=== PATIENT | male | born 1950 | race Caucasian/White ===

== ENCOUNTER 2019-10-03 09:30 | Inpatient (IN) | payer MEDICARE, BC, OTHER ==
[~2019-10-03] VITALS: Ht 188 cm; Wt 121.6 kg
[2019-11-03] MEDS ORDERED: LEVO175T2 PO (12:52)
[2019-11-03] MEDS ORDERED: FLOM0.4C39 PO (12:52)
[2019-11-03] MEDS ORDERED: NORC1TAB8 PO (12:52)
[2019-11-03] MEDS ORDERED: ESCI10TA2 PO (12:52)
[2019-11-03] MEDS ORDERED: HM P99TA PO (12:52)
[2019-11-03] MEDS ORDERED: LOSA25TA14 PO (12:52)
[2019-11-03] MEDS ORDERED: METO1TAB7 PO (12:52)
[2019-11-03] MEDS ORDERED: MULTCAP PO (12:52)
[2019-11-03] MEDS ORDERED: [UNRECOGNIZED DRUG - OTHER] PO (12:52)
--- NOTE | 2019-11-08 08:16 | HPE ---
DATE OF ADMISSION: 11/09/2019 CHIEF COMPLAINT: Left hip pain. HISTORY OF PRESENT ILLNESS: Mr. Remy is a pleasant 69-year-old male with progressively worsening left hip pain and stiffness. He has failed to improve with conservative treatment. He has elected for surgery for his continued symptoms. He has pain with weightbearing activities and his activities of daily living. X-rays of the hip are notable for advanced osteoarthritis of the left hip joint. He has consented for a left total hip arthroplasty by Dr. Surinder Barrios. Medical optimization was performed by Dr. Lyles. ALLERGIES: SULFA. CURRENT MEDICATIONS: - Avalide - metoprolol - Synthroid - multivitamin PAST MEDICAL HISTORY: 1. Hypothyroidism. 2. Hypertension. PAST SURGICAL HISTORY: 1. Kidney stones. 2. Plantar fasciitis on the right and hammertoe. 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 Rarely drinks alcohol. FAMILY HISTORY: Noncontributory. REVIEW OF SYSTEMS: This patient denies chest pain, heart palpitations, cough, wheezing, difficulty breathing, and shortness of breath. He denies abdominal pain, nausea, vomiting, diarrhea, or constipation. He denies recent upper respiratory infection or urinary tract infection symptoms. He does complain of persistent pain in the left hip. PHYSICAL EXAMINATION: General: He is well-nourished, well-developed, in no acute distress, alert male patient. He ambulates with a mild limp favoring the left lower extremity. He does use a single-leg cane. Vital Signs: He is 72-1/2 inches tall, weighs 260 pounds, with a temperature of 97.0, pulse 72, blood pressure 134/88, and respirations of 17. Neck was supple without adenopathy or jugular venous distention. Lungs were clear to auscultation without rales or wheeze. Heart: Regular rate and rhythm. Abdomen: Bowel sounds were present. Extremities: Examination of the left upper extremity did show a well-healing benign noninfectious looking surgical incision over the antecubital region of the proximal forearm. Sutures are ready for removal and he is having those removed tonight by his surgeon. Otherwise, skin was intact over the hip. The patient had decreased internal and external range of motion due to pain and stiffness. The limb is neurovascularly intact. LABORATORY DATA: EKG showed sinus rhythm at 71 beats per minute. CBC showed a white count of 8.27, hemoglobin 14.1, hematocrit 43.5, BUN 14, creatinine 0.835, sodium 143, potassium 4.0. IMPRESSION: 1. Status post left forearm Mohs procedure for melanoma excision. 2. Advanced left hip arthritis. PLAN: The patient will have his sutures removed tonight. It should be no problem for his surgery on Thursday. With regards to the hip, he is using his ointment and his Hibiclens scrub. He has been consented for a left total hip arthroplasty by Dr. Surinder Barrios.
[2019-11-09] MEDS ORDERED: LIDOCAINE 1% MDV 20ML VIAL SQ PRN (06:00)
[2019-11-09] MEDS ORDERED: ceFAZolin SOD 2 GM in IV 1 EA IV ONE (07:45)
[2019-11-09] MEDS ORDERED: ACETAMINOPHEN 500 MG TAB PO ONE (07:45)
[2019-11-09] MEDS ORDERED: LR 1,000 ML IV ONE (07:45)
[2019-11-09] MEDS ORDERED: ceFAZolin 1GM VIAL (J0690 PER 500MG) As Ordered ONE (09:37)
[2019-11-09] MEDS ORDERED: EPINEPHrine INJ 1 MG/ML 1ML AMP As Ordered ONE (09:37)
[2019-11-09] MEDS ORDERED: fentaNYL 100 MCG/2 ML INJECTION (J3010) As Ordered ONE ×2 (10:18→12:33)
[2019-11-09] MEDS ORDERED: propofoL 500 MG/50 ML VIAL As Ordered ONE (10:18)
[2019-11-09] MEDS ORDERED: MIDAZOLAM INJ 2MG/2ML VIAL (J2250 PER 1MG) As Ordered ONE (10:18)
[2019-11-09] MEDS ORDERED: ePHEDrine SULFATE 25 MG/5 ML(5MG/ML) SYRINGE As Ordered ONE (10:19)
[2019-11-09] MEDS ORDERED: PHENYLephrine HCL 500 MCG/5 ML (100MCG/ML) SYRINGE (J2370) As Ordered ONE (10:38)
[2019-11-09] MEDS ORDERED: PHENYLEPHRINE 10MG/ML 1ML VIAL (J2370 PER 1) As Ordered ONE (10:58)
[2019-11-09] MEDS ORDERED: propofoL 200 MG/20 ML VIAL As Ordered ONE ×3 (11:02→11:50)
[2019-11-09] MEDS: fentaNYL 100 MCG/2 ML INJECTION (J3010) IV PRN ×4 (12:34→13:00)
[2019-11-09] MEDS ORDERED: ACETAMINOPHEN TAB 650MG DOSE (2X325MG) PO PRN (12:45)
[2019-11-09] MEDS ORDERED: oxyCODONE 5MG TAB PO PRN (12:45)
[2019-11-09] MEDS ORDERED: PERCOCET 5MG/325MG TAB PO PRN (12:45)
[2019-11-09] MEDS ORDERED: ONDANSETRON 4MG/2ML VIAL IV PRN ×2 (12:45)
[2019-11-09] MEDS ORDERED: MORPHINE 4 MG/ML 1ML VIAL/SYRINGE (J2270) IV PRN (12:45)
[2019-11-09] MEDS ORDERED: LR 1,000 ML IV SCH ×2 (12:45)
[2019-11-09] MEDS: HYDROMORPHONE HCL 0.5 MG/ 0.5 ML SYRINGE (J1170 PER 1) IV PRN ×4 (13:11→13:38)
--- NOTE | 2019-11-09 13:30 | REP ---
REASON: Status post THR. The femoral and acetabular components of the total hip prosthetic device appear well seated and well approximated. There is expected postoperative soft tissue swelling. There is a lateral skin staple line in place. Electronically Signed by Kevin Licona DO 11/09/2019 02:02 P
--- NOTE | 2019-11-09 14:43 | HPEPDOC ---
General Date of Admission Nov 09, 2019 at 06:51 Date of Service: Nov 09, 2019 Chief Complaint The patient is a 69-year-old male admitted with a reason for visit of Left Hip Osteoarthritis. History of Present Illness Consultation Report: Consultation requested by Dr Surinder Barrios. Consultation for management of medical comorbidities. HPI: This is a 69-year-old male with PMH of Hypertension, hypothyroid who was admitted for elective total hip replacement for progressively worsening left hippain and stiffness which has failed to improve with conservative treatment. X-rays of the hip are notable for advanced osteoarthritis of the left hip joint. He underwent went left total hip arthroplasty by Dr. Surinder Barrios. Hospitalist consulted for management of medical comorbidities. Now he compalins of dull aching pain at the left hip surgical site about 6, no radiation. Denies any nausea or vomiting, no SOb or cough. Home Medications Scheduled Escitalopram Oxalate (Escitalopram Oxalate) 10 Mg Tablet, 10 MG PO QPM, (Reported) Garlic (Odorless Garlic) 300 Mg Capsule, Unknown Dose PO DAILY, (Reported) Levothyroxine Sodium (Levothyroxine Sodium) 175 Mcg Tablet, 175 MCG PO DAILY, (Reported) Losartan Potassium (Losartan Potassium) 25 Mg Tablet, 12.5 MG PO DAILY, (Reported) Metoprolol Succinate (Metoprolol Succinate) 50 Mg Tab.er.24h, 50 MG PO QHS, (Reported) Multivitamin (Multivitamins) 1 Each Capsule, 1 CAP PO DAILY, (Reported) Potassium Gluconate (Potassium) 99 Mg Tablet, Unknown Dose PO DAILY, (Reported) Tamsulosin HCl (Flomax) 0.4 Mg Capsule, 0.4 MG PO QPM, (Reported) Scheduled PRN Hydrocodone/Acetaminophen ([place] 7.5-325 Tablet) 1 Each Tablet, 1 TAB PO Q6HP PRN for PAIN, (Reported) Allergies Coded Allergies: Sulfa (Sulfonamide Antibiotics) (Verified Allergy, Intermediate, rash, 11/03/19) Past Medical History Medical History 1. Hypothyroidism. 2. Hypertension. 3. BPH 4. Depression Surgical History 1. Kidney stones. 2. Plantar fasciitis on the right and hammertoe. Family History Significant Family History: Cancer (breast cancer), Other (stroke mother ) discussed with patient Social History * Smoker: Denies Alcohol: rarely Drugs: denies A-FIB/CHADSVASC A-FIB History Current/History of A-Fib/PAF?: No Review of Systems Constitutional: Denies: Chills, Fever, Night Sweats Eyes: Denies: Pain, Vision change ENT: Denies: Head Aches, Ear Pain, Dysphagia Skin: Denies: Rash, Lesions, Breakdown Pulmonary: Denies: Dyspnea, Cough Cardiovascular: Denies: Chest Pain, Palpitations, Orthopnea, Paroxysmal Noc. Dyspnea, Lt Headedness Gastrointestinal: Denies: Nausea, Vomiting, Abdominal Pain, Diarrhea Genitourinary: Denies: Dysuria, Frequency, Incontinence, Retention Hematologic: Denies: Bruising, Bleeding Excessively Musculoskeletal: Reports: Joint Pain Neurological: Denies: Weakness, Numbness, Change in speech, Confusion Physical Examination General Exam: Positive: Alert, Cooperative, No Acute Distress Eye Exam: Positive: PERRLA, Conjunctiva & lids normal, EOMI; Negative: Sclera icteric ENT Exam: Positive: Atraumatic, Mucous membr. moist/pink, Pharynx Normal Neck Exam: Positive: Supple; Negative: JVD, thyromegaly Chest Exam: Positive: Clear to auscultation, Normal air movement Heart Exam: Positive: Rate Normal, Regular Rhythm, Normal S1, Normal S2; Negative: Murmurs, Rubs Abdomen Exam: Positive: Normal bowel sounds, Soft; Negative: Tenderness, Hepatospenomegaly Extremity Exam: Negative: Clubbing, Cyanosis, Edema Skin Exam: Positive: Nl turgor and temperature; Negative: Breakdown, Lesion Neuro Exam: Positive: Normal Speech, Strength at 5/5 X4 ext, Normal Tone Vital Signs Vital Signs Date Time Temp Pulse Resp B/P (MAP) Pulse Ox O2 Delivery O2 Flow Rate FiO2 11/09/19 13:00 62 16 147/68 (94) 96 Room Air 11/09/19 12:50 2 11/09/19 12:31 97.7 Assessment/Plan This is a 69-year-old male with PMH of Hypertension, hypothyroid who was admitted for elective total hip replacement for progressively worsening left hip pain and stiffness which has failed to improve with conservative treatment. X- rays of the hip are notable for advanced osteoarthritis of the left hip joint. He underwent went left total hip arthroplasty by Dr. Surinder Barrios. Hospitalist consulted for management of medical comorbidities. Left Total hip replacement pain control and dvt prophylaxis as per ortho PT/Ot, bowel regimen. Hypertension continue home meds Hypothyroid synthroid BPH flomax. Plan / VTE VTE Prophylaxis Ordered?: Yes NATALYA MUHAMMAD MD Nov 09, 2019 13:14
[2019-11-09 15:00] VITALS: BP 142/77
[2019-11-09] MEDS: PERCOCET 5MG/325MG TAB PO PRN ×2 (15:00→21:33)
[2019-11-09 15:30] VITALS: BP 140/81
[2019-11-09] MEDS ORDERED: PILL CUTTER 1 EACH XX PRN (15:30)
[2019-11-09 16:30] VITALS: BP 142/76
[2019-11-09 17:30] VITALS: BP 136/73
[2019-11-09] MEDS ORDERED: KETOROLAC 30 MG/ML 1ML VIAL IV ONE (18:15)
[2019-11-09] MEDS: ceFAZolin SOD 2 GM in IV 1 EA IV SCH (18:27)
[2019-11-09 18:30] VITALS: BP 135/73
[2019-11-09 20:10] VITALS: BP 135/72
[2019-11-09] MEDS: ASPIRIN 81 MG ENTERIC TAB PO SCH (21:31)
[2019-11-09] MEDS: ESCITALOPRAM OXALATE 10 MG TAB (LEXAPRO) PO SCH (21:31)
[2019-11-09] MEDS: TAMSULOSIN 0.4 MG CAP PO SCH (21:31)
[2019-11-09] MEDS: METOPROLOL SUCC (TopROL XL) 50MG **XL** TAB PO SCH (21:32)
[2019-11-10 02:15] VITALS: BP 132/71
[2019-11-10] MEDS: ceFAZolin SOD 2 GM in IV 1 EA IV SCH ×2 (02:54→09:15)
[2019-11-10 05:47] VITALS: BP 130/72
[2019-11-10] MEDS: PERCOCET 5MG/325MG TAB PO PRN ×5 (05:49→23:18)
[2019-11-10] MEDS: LEVOTHYROXINE 75MCG TABLET (0.075MG) PO SCH (05:49)
[2019-11-10] MEDS: LEVOTHYROXINE 100MCG TABLET (0.1MG) PO SCH (05:49)
[2019-11-10] MEDS ORDERED: PERCOCET 5MG/325MG TAB PO PRN (06:30)
[2019-11-10 07:01] LABS: BASO # 0.1 10^3/uL (0.0-0.2); BASO % 0.5 % (0.0-1.0); EOS # 0.2 10^3/uL (0.0-0.5); EOS % 1.8 % (0.0-3.0); HEMATOCRIT 33.8 % (42.0-52.0); HEMOGLOBIN 11.1 g/dl (13.5-17.5); LYMPH # 1.7 10^3/uL (1.5-5.0); LYMPH % 18.4 % (24.0-44.0); MEAN CORPUSCULAR HEMOGLOBIN 31.1 pg (27.0-33.0); MEAN CORPUSCULAR HGB CONC 32.8 g/dl (32.0-36.5); MEAN CORPUSCULAR VOLUME 94.7 fl (80.0-96.0); MONO # 0.8 10^3/uL (0.0-0.8); MONO % 8.8 % (0.0-5.0); NEUTROPHILS # 6.5 10^3/uL (1.5-8.5); PLATELET COUNT, AUTOMATED 231 10^3/uL (150-450); RED BLOOD COUNT 3.57 10^6/uL (4.30-6.10); WHITE BLOOD COUNT 9.2 10^3/uL (4.0-10.0)
[2019-11-10] MEDS ORDERED: ASPI81TA85 PO (07:15)
[2019-11-10] MEDS ORDERED: PERC5TAB12 PO (07:15)
[2019-11-10 07:28] LABS: ALBUMIN 2.7 GM/DL (3.2-5.2); ALT/SGPT 22 U/L (12-78); BILIRUBIN,TOTAL 0.6 MG/DL (0.2-1.0); BLOOD UREA NITROGEN 17 MG/DL (7-18); CALCIUM LEVEL 8.9 MG/DL (8.8-10.2); CARBON DIOXIDE LEVEL 31 MEQ/L (21-32); CHLORIDE LEVEL 104 MEQ/L (98-107); CREATININE FOR GFR 0.87 MG/DL (0.70-1.30); GLOMERULAR FILTRATION RATE > 60.0 (>49); GLUCOSE, FASTING 110 MG/DL (70-100); POTASSIUM SERUM 3.9 MEQ/L (3.5-5.1); SODIUM LEVEL 141 MEQ/L (136-145); TOTAL PROTEIN 5.6 GM/DL (6.4-8.2)
[2019-11-10] MEDS: ASPIRIN 81 MG ENTERIC TAB PO SCH ×2 (09:11→20:35)
[2019-11-10] MEDS: MOM 30ML SUSPENSION UDC PO SCH (09:11)
[2019-11-10] MEDS: LOSARTAN 25 MG TAB PO SCH (09:11)
[2019-11-10] MEDS: MIRALAX *UNIT DOSE* 17GM PACKET PO SCH (09:14)
[2019-11-10 14:00] VITALS: BP 132/69
[2019-11-10] MEDS: ESCITALOPRAM OXALATE 10 MG TAB (LEXAPRO) PO SCH (20:35)
[2019-11-10] MEDS: METOPROLOL SUCC (TopROL XL) 50MG **XL** TAB PO SCH (20:35)
[2019-11-10] MEDS: TAMSULOSIN 0.4 MG CAP PO SCH (20:35)
[2019-11-10 22:00] VITALS: BP 130/70
[2019-11-11] MEDS: LEVOTHYROXINE 75MCG TABLET (0.075MG) PO SCH (05:11)
[2019-11-11] MEDS: LEVOTHYROXINE 100MCG TABLET (0.1MG) PO SCH (05:11)
[2019-11-11] MEDS: PERCOCET 5MG/325MG TAB PO PRN ×2 (05:11→10:28)
[2019-11-11 06:00] VITALS: BP 129/64
[2019-11-11 07:04] LABS: HEMATOCRIT 32.6 % (42.0-52.0); HEMOGLOBIN 10.7 g/dl (13.5-17.5); MEAN CORPUSCULAR HEMOGLOBIN 31.2 pg (27.0-33.0); MEAN CORPUSCULAR HGB CONC 32.8 g/dl (32.0-36.5); PLATELET COUNT, AUTOMATED 220 10^3/uL (150-450); RED BLOOD COUNT 3.43 10^6/uL (4.30-6.10); WHITE BLOOD COUNT 11.3 10^3/uL (4.0-10.0)
[2019-11-11 07:35] LABS: ALBUMIN 2.8 GM/DL (3.2-5.2); ALT/SGPT 18 U/L (12-78); BILIRUBIN,TOTAL 0.6 MG/DL (0.2-1.0); BLOOD UREA NITROGEN 15 MG/DL (7-18); CALCIUM LEVEL 8.7 MG/DL (8.8-10.2); CARBON DIOXIDE LEVEL 29 MEQ/L (21-32); CHLORIDE LEVEL 106 MEQ/L (98-107); GLOMERULAR FILTRATION RATE > 60.0 (>49); GLUCOSE, FASTING 97 MG/DL (70-100); POTASSIUM SERUM 3.8 MEQ/L (3.5-5.1); SODIUM LEVEL 141 MEQ/L (136-145); TOTAL PROTEIN 5.8 GM/DL (6.4-8.2)
[2019-11-11 08:38] VITALS: BP 129/64
[2019-11-11] MEDS: ASPIRIN 81 MG ENTERIC TAB PO SCH (08:38)
[2019-11-11] MEDS: MOM 30ML SUSPENSION UDC PO SCH (08:38)
[2019-11-11] MEDS: LOSARTAN 25 MG TAB PO SCH (08:38)
[2019-11-11] MEDS: MIRALAX *UNIT DOSE* 17GM PACKET PO SCH (08:39)
--- NOTE | 2019-11-15 06:29 | RO ---
DATE OF PROCEDURE: 11/09/2019 PREPROCEDURE DIAGNOSIS: Degenerative arthritis of the left hip. POSTPROCEDURE DIAGNOSIS: Degenerative arthritis of the left hip. PROCEDURE: Left total hip arthroplasty using a Size 8 standard offset Adena stem with an 8.5 mm neck and a 56 mm Gription Sector cup with a 40 mm polyethylene liner. SURGEON: Dr. Connie Barrios PREVENTIVE MEDICINE SPECIALIST: Carlita Ortiz ANESTHESIA: Spinal. COMPLICATIONS: None. ESTIMATED BLOOD LOSS: 300 mL. SPECIMEN: Femoral head. PROCEDURE: Antibiotics were given intravenously preoperatively and a successful spinal anesthetic was induced. He was placed in the lateral decubitus position with the left hip uppermost. Yoan hip positioner was utilized. The down leg well padded, especially the peroneal nerve. The axillary roll was utilized. The left hip area was carefully prepped and draped in the usual sterile fashion. Then, after an appropriate time out, a longitudinal incision was made for a direct lateral approach to the hip. Bovie cautery was used to coagulate crossing vessels down to the tensor fascia. It is noteworthy this was a difficult surgery. He had a very large leg and a very deep soft tissue envelope. My medical assistant cardiology, Ms. Carlita Ortiz, was critical to the success of this difficult procedure by helping with appropriate soft tissue retraction, helping to manipulate the leg, helping to dislocate and relocate the hip several times, helping to close the wound, and helping to prepare the patient, amongst many other tasks to allow me to perform the operation smoothly, efficiently and safely. We divided the tensor fascia in line with the skin incision. We did have to extend the incision distally and proximally for adequate exposure because of the deep soft tissue envelope. The gluteus medius was split in the anterior 1/3 posterior 2/3 junction. Then underlying this we divided the gluteus minimus and then the anterior hip capsule and then carefully dissected off the proximal femur as we externally rotated the hip and eventually we were able to dislocate the hip anteriorly. The piriformis fossa was identified, followed by the insertion of the starter reamer and then the canal finder reamer and then the lateralizing reamer. Then, we reamed up eventually to size 8. A femoral neck osteotomy was performed. Then, we began broached up to a size 8. We were about a finger breadths above the lesser trochanter. Great care was taken to make sure we were lateral enough and not to put the stem in varus. We eventually were able to get good alignment and good fixation of the stem. The trial was removed and we exposed the acetabulum and performed a labral excision 360 degrees. We then began reaming beginning with a 48 mm reamer and then advanced in 2s up to 52 and 1 from there up to 55. The trial 56 cup was placed using the extramedullary alignment jig to estimate our version and abduction and it seemed to fit snugly, but I did ask for the Sector cup in case screws would be needed. He ad a very sizable anterior osteophyte, but we clearly reamed down to the cotyloid fossa. We pulsatile irrigated out the joint as we did several times throughout the operation. Then, asked for the real 57 cup and that was placed, again, using the extramedullary alignment jig to estimate our version and abduction. It was well seated. It did not need supplemental screw fixation. The central hole eliminator was placed and then the polyethylene was placed. We then began a series of trials beginning with a +1.5 standard offset stem and then we trialed up to an 8.5 and he did have an excessively long neck I felt and the 8.5 seemed to give him the best soft tissue tension. He was stable to flexion and internal rotation and extension and external rotation. Thus, I settled on the 8.5 neck length. We then removed all the trial components, copiously pulsatile lavage irrigated out the femoral canal, as I did again several times throughout the surgery. Then advanced the real #8 Adena stem and then dried the trunnion and placed the 40 mm head with an 8.5 neck length and made sure it was secure. Then, reduced the hip. We copiously irrigated again and closed the anterior hip capsule and the gluteus minimus back anatomically with interrupted #1 PDS sutures. The gluteus medius was repaired back anatomically with interrupted #1 PDS suture, irrigating between layers. We closed the deep tensor fascia back with a combination of #1 PDS suture and a running #1 Stratafix. Then we irrigated the deep soft tissues and then closed with interrupted #2-0 PDS suture. The skin was closed with etienne, covered by an Optifoam, dry sterile bulky dressing. He was then turned supine and then transferred to the stretcher and then to the recovery room in stable condition. There were no intraoperative complications.
== END 2019-11-11 15:45 | disposition home or self-care (01) | DRG 470 ==
LOC: M OR 11-09 06:51 → M MS5PR 11-09 14:40
PROVIDERS: ADMIT Orthopaedic Surgery; ATTEND Orthopaedic Surgery
PROC: 0SRB0JA Replacement of Left Hip Joint with Synthetic Substitute, Uncemented, Open Approach (ICD-10-PCS; principal; 2019-11-09 09:50)
DX: M16.12 Unilateral primary osteoarthritis, left hip (principal); E03.9 Hypothyroidism, unspecified; I10 Essential (primary) hypertension; Z87.442 Personal history of urinary calculi; Z85.820 Personal history of malignant melanoma of skin; Z88.2 Allergy status to sulfonamides; N40.0 Benign prostatic hyperplasia without lower urinary tract symptoms; F32.9 Major depressive disorder, single episode, unspecified

== ENCOUNTER → 2019-11-06 | Outpatient (CLI) | payer MEDICARE, BC, OTHER ==
[~2019-11-06] MED LIST: ASPI81TA85 PO; ESCI10TA2 PO; FLOM0.4C39 PO; HM P99TA PO; LEVO175T2 PO; LOSA25TA14 PO; METO1TAB7 PO; MULTCAP PO; NORC1TAB8 PO; PERC5TAB12 PO; [UNRECOGNIZED DRUG - OTHER] PO
== END ==
LOC: M LABSMTC 09:34
PROVIDERS: ATTEND Anesthesiology
DX: Z01.818 Encounter for other preprocedural examination (principal); Z11.59 Encounter for screening for other viral diseases

== ENCOUNTER 2020-08-03 06:12 | Day surgery (SDC) | payer MEDICARE, BC, OTHER ==
[~2020-08-03] VITALS: Ht 188 cm; Wt 111.5 kg
[~2020-08-03 06:12] MED LIST changes: -ASPI81TA85 PO; +ASPI81TA86 PO; +ESCI10TA16 PO; -ESCI10TA2 PO; +HYDR-3716 PO; +LEVO2TA PO; +LEXA1TAB PO; +LR 1,000 ML IV ONE; +SYNT25TA PO; +THERTAB52 PO; +VITA-243 PO; +ceFAZolin SOD 2 GM in IV 1 EA IV ONE
--- OUTSIDE RECORDS SUMMARY | 2020-08-03 06:19 | CCD ---
Author Author [facility] Organization [facility] Address Unknown Phone Unavailable Care Team Providers Care Owner/Operator Name Role Phone Ashley Tello Unavailable PROBLEMS Type Condition ICD9-CM Code [id number] Code Onset Dates Condition S tatus W/U Status Risk SNOMED Code Notes Problem Ureteral stone with hydronephrosis N13.2 Activ e confirmed 282380904 Problem Pre-op testing Z01.818 Active confirmed 4227 19216 ALLERGIES Allergen (clinical drug ingredient) Drug/Non Drug Allergy do cumented on EMR Reaction Allergy Type Onset Date Status duloxetine Cymbalta([facility] [place]NOTE 2] Code:[address]-48) Diarrhea Drug Allergy Active Sulfa (for allergy use only) Unknown Drug Allergy Active ENCOUNTERS from 1950 to 2020-07-24 Encounter Location Date Provider Diagnosis [facility] [address] [place] [address] Jul Ashley Tello IMMUNIZATIONS No Information SOCIAL HISTORY Tobacco Use: Social History Observation Description Date Details (start date - stop date) Never Smoker Sex Assigned At : Social History Observation Description Sex Assigned At Unknown Language: Question Answer Notes Languages spoken: Azerbaijani Yarsani: Question Answer Notes Yarsani No buddhist beliefs that would impact health care. Alcohol Screening: Question Answer Notes Did you have a drink containing alcohol in the past year? Ye s Points 1 Interpretation Negative How many drinks did you have on a typica l day when you were drinking in the past year? 1 or 2 (0 points) How often did you have a drink containing alcohol in t he past year? Monthly or less (1 point) Tobacco Use: Question Answer Notes Are you a: never smoker REASON FOR REFERRAL No Information VITAL SIGNS No information MEDICATIONS Medication SIG (Take, Route, Frequency, Duration) Notes Start Da te End Date Status Flomax 0.4 MG 1 capsule Orally Once a day for 30 day(s) Active Levothyroxine Sodium 25 MCG 1 tablet in the morning on an empty stomach Orally Once a day for 30 day(s) Active Finasteride 5 MG 1 tablet Orally Once a day for 30 day(s) Not-Taking Hydrocodone-Acetaminophen 7.5-325 MG 1 tablet as needed Orally ever y 6 hrs Active Levothyroxine Sodium 200 MCG 1 tablet in the morning o n an empty stomach Orally Once a day for 30 day(s) Active Metoprolol Succinate 50 MG 1 capsule Orally Once a day for 30 day(s) Active Losartan Potassium 100 MG 1 tablet Orally Once a day for 30 day(s) Active Escitalopram Oxalate 10 MG 1 tablet Orally Once a day for 30 day(s) Active Hydrochlorothiazide 12.5 MG 1 capsule in the morning O rally Once a day for 30 day(s) Active Triamcinolone Acetonide 0.1 % 1 application Externally Two times a We ek Active PROCEDURES No Information RESULTS No Results REASON FOR VISIT covid testing MEDICAL (GENERAL) HISTORY Type Description Date Medical History seborrhelc dermatitis Medical History obstructive sleep apnea Medical History nervousness Medical History mixed hyperlipidemia Medical History low back pain Medical History htn Medical History hypothyroidism Medical History kidney stones Medical History bph with lower urinary tract symptoms 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 Surgical History right foot plantar fascla 02/24/2006 Surgical History sinusectomy 2000 Surgical History prostate biopsy x 3 negative Surgical History right wrist arthroscopy 10/2014 Surgical History claw toe correction Surgical History left hip sx 11/2019 Surgical History melanonma removed from left arm 10/2019 Hospitalization History hip sx Goals Section No Information Health Concerns No Information MEDICAL EQUIPMENT No Information MENTAL STATUS No Information FUNCTIONAL STATUS No Information ASSESSMENTS No Information PLAN OF TREATMENT Next Appt Details Provider Name:Alexander Vásquez, 2020-08 09:30:00 AM, [address], [place], [address], Insurance Providers Payer Name Payer Address Payer Phone Insured Name Patient Relati onship to Insured Coverage Start Date Coverage End Date [facility] [address] [facility] [id number] [phone] ABRAHAM JORDAN self MEDICARE Part A and B [address] [facility] [phone] ABRAHAM JORDAN self
--- OUTSIDE RECORDS SUMMARY | 2020-08-03 06:20 | CCD ---
Author Author [facility] Organization [facility] Address Unknown Phone Unavailable Care Team Providers [employer] Architect Name Role Phone Ashley Tello Unavailable PROBLEMS Type Condition ICD9-CM Code [id number] Code Onset Dates Condition S tatus W/U Status Risk SNOMED Code Notes Problem Ureteral stone with hydronephrosis N13.2 Activ e confirmed 114440050 Problem Pre-op testing Z01.818 Active confirmed 4227 29335 ALLERGIES Allergen (clinical drug ingredient) Drug/Non Drug Allergy do cumented on EMR Reaction Allergy Type Onset Date Status duloxetine Cymbalta([facility] Code:[address]-21) Diarrhea Drug Allergy Active Sulfa (for allergy use only) Unknown Drug Allergy Active ENCOUNTERS from 1950 to 2020-07-11 Encounter Location Date Provider Diagnosis [facility] [address] [place] [address] Jul Ashley Recore Dysuria R30.0 IMMUNIZATIONS No Information SOCIAL HISTORY Tobacco Use: Social History Observation Description Date Details (start date - stop date) Never Smoker Sex Assigned At : Social History Observation Description Sex Assigned At Unknown Language: Question Answer Notes Languages spoken: Tristanian Muslim: Question Answer Notes Muslim No yazdanism beliefs that would impact health care. Alcohol [...] Information RESULTS No Results REASON FOR VISIT UTI? MEDICAL (GENERAL) HISTORY Type Description Date Medical [...] No Information FUNCTIONAL STATUS No Information ASSESSMENTS Encounter Date Diagnosis Assessment Notes Treatment Notes Treatm ent Clinical Notes Jul, Dysuria (ICD-10 - R30.0) PLAN OF TREATMENT Treatment Notes Test Name Order Date URINE CULTURE 2020-07-09 [facility] URINALYSIS 2020-07-09 Next Appt Details Provider Name:Alexander Vásquez, 2020-08 09:30:00 AM, [address], [place], [address], Insurance Providers Payer Name Payer Address Payer Phone Insured Name Patient Relati onship to Insured Coverage Start Date Coverage End Date [facility] [address] [facility] [id number] ABRAHAM JORDAN self MEDICARE Part A and B [address] [facility] [phone] [phone] ABRAHAM JORDAN self
--- OUTSIDE RECORDS SUMMARY | 2020-08-03 06:20 | CCD | Clinical Summary ---
Author Author RecoveredPersonRecord_000001 Francisco Javier MD Organization Unknown Address [address] [facility] [address] [place] [address] Phone Unavailable Care Team Providers Care Manager Lan Name Role Phone Rafal NEAL, Dr. Jyothi Sanchez MD Unavailable [phone] Eliza, Nurse Practitioner, Gladys Unavailable Unava ilable Social History Code Name Start Date Stop Date Never Smoker 10/13/2011 Sex: Male Problems SNOMED Problem Status Date Discovered Last Modifie d Date Calculus of kidney Active 06/21/2020 1 [id number] Encounter for screening for malignant neoplasm o f prostate Resolved 04/25/2020 04/25/2020 Other specified hypothyroidism Active 02/21/2011 04/25/2020 Essential (primary) hypertension Active 09/07/19 11 04/25/2020 Mixed hyperlipidemia Active 08/02/2007 020 Obstructive sleep apnea < CPAP INTOLERANT Active 02/03/2006 04/25/2020 Encounter for general adult medical exam ination without abnormal findings Resolved 04/25/2020 04/25/2020 Nervousness Active 03/25/2006 10/18/2019 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 Active 0 09/05/2019 10/18/2019 Benign prostatic hyperplasia with lower urinary tract symptoms Active 10/15/2017 10/18/2019 Low back pain Active 12/26/2008 07/20/2019 Body mass index (BMI) 33.0-33.9, adult Active 04/21/2019 Polyneuropathy, unspecified Active 04/20/2018 10/20/2018 BPH Active 10/15/2017 10/15/2017 48532946 Hearing loss Active 04/16/2017 04/16/2017 86966525 Unspecified hearing loss, left ear Active 201604/16/2017 00732656 Renal stone Active 09/06/2015 12/14/2017 33766608 Acquired hypothyroidism Active 02/21/201102/2018 Eczema Active 02/03/2006 85684389 Obstructive sleep apnea,CPAP intolerant Active 0 02/03/2006 04/16/2017 45301381 Obstructive sleep apnea (adult) (pediatric) Active 02/03/2006 04/16/2017 172076401 Nervousness Active 03/25/2006 12/14/2017 95630436 Hyperlipidemia Active 08/02/2007 10/15/2017 Acquired hypothyroidism, unspecified cause Active 09/18/2004 Obstructive sleep apnea Active 02/16/2003 Seborrhea Active 05/18/2003 12/14/2017 Seborrheic dermatitis, unspecified Active 200212/14/2017 Plantar fasciitis Active 01/12/2003 Essential hypertension Active 02/16/2003 Depression Active 01/12/2003 Chronic low back pain Active 09/22/2002 Medications Brand Strength Dose/Route/Frequency RxNorm Code Date Started Date Discontinued Status Triamcinolone Acetonide 0.1% Cream Apply thin film to affected ar ea bid 9973842 05/18/2003 Current finasteride 5 mg oral tablet TAKE ONE TABLET BY MOUTH EVERY DAY 31 0346 10/15/2017 Current escitalopram oxalate 10 mg oral tablet TAKE ONE TABLET BY MOUTH EVERY DAY 322438 12/14/2017 Current tamsulosin 0.4 mg oral capsule TAKE ONE CAPSULE BY MOUTH EVERY DA Y 396173 10/15/2017 Current levothyroxine 200 mcg oral tablet TAKE ONE TABLET BY MOUTH EVERY DA Y 530643 10/18/2019 Current hydroCHLOROthiazide 12.5 mg oral tablet TAKE ONE TABLET BY MOUTH EVERY DAY 871539 12/07/2019 Current losartan 100 mg oral tablet TAKE ONE TABLET BY MOUTH EVERY DAY 732111 12/07/2019 Current metoprolol succinate 50 mg oral Tablet, Extended Release 24 hr TAKE ONE TABLET BY MOUTH EVERY DAY 673033 02/16/2003 Current levothyroxine 25 mcg oral tablet TAKE ONE TABLET BY MOUTH EVERY DAY 563904 12/21/2019 Current HYDROcodone-acetaminophen 7.5-325 mg oral tablet take 1 tabl et by oral route every 4 hours as needed for pain MDD 4 910860 03/02/2019 Current Allergies Date Identified Type Cause Reaction Severity Status Code System Co de 12/07/2003 Allergy to substance Sulfas Low Active 12/14/2017 Allergy to substance Cymbalta diarrhea Low Active RXNORM 346313 Procedures Code System Code Description Date Ordered Status CPT 08362 Radiologic exam abdomen 1 view 06/21/2020 completed Immunizations Date Vaccine Status CVX 08/16/2019 Influenza, high dose seasonal Completed 13 5 10/23/2016 Td adult Completed 09 04/16/2017 Prevnar 13 (Pneumococcal PCV 13) Completed 133 04/20/2018 PNEUMOVAX 23 (Pneumococcal PPV23) Completed 33 Vital Signs Date PulseOx Height Weight BMI Temp Respiration Heart Rate Blood P ressure IO2C 06/21/2020 96% 187.96cm 114.31kg 32.36kg/m2 36.56Cel 84/min 130 /80mm[Hg] Assessment * N20.0 Calculus of kidney Plan of Treatment * Calculus of kidney* Orders: [id number] - Established patient outpatient visit, 20-29 minutes 42358 - Radiologic exam abdomen 1 view 80209 - Urinalysis, automated, with microscopy 85737 - Culture, bacterial; with isolation and presumptive identification of eac h isolate, urine Referrals No referral reasons listed. Functional Status No Functional Status Listed Mental Status No Mental Status Listed Goals No Goals listed. Health Concerns No Health Concerns listed. Health Status Evaluations/Outcomes No Evaluations/Outcomes listed. Interventions No Interventions listed. Lab Test & Results Date Performed Test Result Status 06/21/2020 KUB/FLATPLATE, ABDO: Radiology Report Exam Numbe r: [id number] completed 06/21/2020 KUB/FLATPLATE, ABDO: Radiology Report completed 06/21/2020 KUB/FLATPLATE, ABDO: Radiology Report AT E OF EXAMINATION: 06/21/2020 14:34 EST completed 06/21/2020 KUB/FLATPLATE, ABDO: Radiology Report completed 06/21/2020 KUB/FLATPLATE, ABDO: Radiology Report HISTORY: R enal stone completed 06/21/2020 KUB/FLATPLATE, ABDO: Radiology Report completed 06/21/2020 KUB/FLATPLATE, ABDO: Radiology Report TE CHNIQUE: 1 views of the abdomen were obtained. completed 06/21/2020 KUB/FLATPLATE, ABDO: Radiology Report completed 06/21/2020 KUB/FLATPLATE, ABDO: Radiology Report completed 06/21/2020 KUB/FLATPLATE, ABDO: Radiology Report Th ere is a 0.3 cm stone in the upper mid and lower pole of left completed 06/21/2020 KUB/FLATPLATE, ABDO: Radiology Report ki dney. Bowel gas pattern appears unremarkable. completed 06/21/2020 KUB/FLATPLATE, ABDO: Radiology Report completed 06/21/2020 KUB/FLATPLATE, ABDO: Radiology Report IMPRESSION : completed 06/21/2020 KUB/FLATPLATE, ABDO: Radiology Report completed 06/21/2020 KUB/FLATPLATE, ABDO: Radiology Report At least 3 small stones projecting over the left renal contour. completed 06/21/2020 KUB/FLATPLATE, ABDO: Radiology Report completed 06/21/2020 KUB/FLATPLATE, ABDO: Radiology Report El ectronically signed in PS360 by: Manjinder Shearer M.D. 06/21/2020 completed 06/21/2020 KUB/FLATPLATE, ABDO: Radiology Report 15:02 EST completed 06/21/2020 KUB/FLATPLATE, ABDO: Radiology Report completed 06/21/2020 KUB/FLATPLATE, ABDO: Radiology Report completed 06/21/2020 KUB/FLATPLATE, ABDO: Radiology Report Reported By: - Helen SHEARER M.D. completed 06/21/2020 KUB/FLATPLATE, ABDO: Radiology Report Signed By: Helen SHEARER M.D. completed 06/21/2020 KUB/FLATPLATE, ABDO: Radiology Report completed Test Code Code System Panel Description Date Ordered Note 31901 CPT Urinalysis, automated, with microscopy Signed off by Daniel Lyles on 06-21-2020 18068 CPT Culture, bacterial; with isolation and presumptive identification of each isolate, urine 06/21/2020 Signed off by Daniel reynolds on 06-21-2020 Encounter Diagnosis * Calculus of kidney Here today for evaluation of possible kidney stones. He has a long history of ki dney stones, last time was 2018, had them removed by Dr. Lui. Reports left s ided flank pain and hematuria 1-2 weeks ago. Now he is only having bladder press ure and discomfort with dysuria. Hematuria and flank pain have resolved.Denies f ever, chills, nausea, or vomiting. No CVA tenderness today.Unable to give a urin e sample in the office today. He is already on flomax and has chronic pain meds.
--- OUTSIDE RECORDS SUMMARY | 2020-08-03 06:20 | CCD ---
Author Author [facility] Organization [facility] Address Unknown Phone Unavailable Care Team Providers Care Phlebotomy Lab Assistant Name Role Phone Ashley Tello Unavailable PROBLEMS Type Condition ICD9-CM Code [id number] Code Onset Dates Condition S tatus W/U Status Risk SNOMED Code Notes Problem Ureteral stone with hydronephrosis N13.2 Activ e confirmed 607340904 Problem Pre-op testing Z01.818 Active confirmed 4227 14543 ALLERGIES Allergen (clinical drug ingredient) Drug/Non Drug Allergy do cumented on EMR Reaction Allergy Type Onset Date Status duloxetine Cymbalta([facility] Code:[address]-04) Diarrhea Drug Allergy Active Sulfa (for allergy use only) Unknown Drug Allergy Active ENCOUNTERS from 1950 to 2020-07-14 Encounter Location Date Provider Diagnosis [facility] [address] [place] [address] Jun Ashley Recore Ureteral stone with hydronephrosis N13.2 and Pre-op testing Z01.818 IMMUNIZATIONS No Information SOCIAL HISTORY Tobacco Use: Social History Observation Description Date Details (start date - stop date) Never Smoker Sex Assigned At : Social History Observation Description Sex Assigned At Unknown Language: Question Answer Notes Languages spoken: Armenian Anabaptism: Question Answer Notes Anabaptism No adventist beliefs that would impact health care. Alcohol [...] REASON FOR REFERRAL No Information VITAL SIGNS Weight 250 lbs Jun, Height 74 in Jun, BMI 32.09 kg/m2 Jun, Heart Rate 63 /min Jun, Respiratory Rate 18 /min Jun, Oximetry 95 Jun, Blood pressure systolic 128 mm Hg Jun, Blood pressure diastolic 74 mm Hg Jun, MEDICATIONS Medication SIG (Take, Route, Frequency, Duration) [...] Information RESULTS No Results REASON FOR VISIT obstructing stone on right side MEDICAL (GENERAL) HISTORY Type Description Date Medical [...] Notes Treatment Notes Treatm ent Clinical Notes 22 Franko, 2021 Ureteral stone with hydronephrosis (ICD-10 - N13 .2) Jun, Pre-op testing (ICD-10 - Z01.818) PLAN OF TREATMENT Treatment Notes Test Name Order Date CBC - Complete Blood Count 2020-06-29 PT & APTT 2020-06-29 URINE CULTURE 2020-06-29 UA URINALYSIS 2020-06-29 Basic Metabolic Profile (BMP) 2020-06-29 Electrocardiogram (EKG) 2020-06-29 Chest X-ray PA and lateral 2020-06-29 Next Appt Details Provider Name:Alexander Vásquez, 2020-08 09:30:00 AM, [address], [place], [address], Insurance Providers Payer Name Payer Address Payer Phone Insured Name Patient Relati onship to Insured Coverage Start Date Coverage End Date MEDICARE Part A and B [address] [facility] [id number] [phone] ABRAHAM JORDAN [facility] [address] [facility] [id number] [phone] ABRAHAM JORDAN self
--- OUTSIDE RECORDS SUMMARY | 2020-08-03 06:20 | CCD ---
Author Author [facility] Organization [facility] Address Unknown Phone Unavailable Care Team Providers Care Med Aide Name Role Phone Ashley Tello Unavailable PROBLEMS Type Condition ICD9-CM Code [id number] Code Onset Dates Condition S tatus W/U Status Risk SNOMED Code Notes Problem Ureteral stone with hydronephrosis N13.2 Activ e confirmed 610372679 Problem Pre-op testing Z01.818 Active confirmed 4223 29292 ALLERGIES Allergen (clinical drug ingredient) Drug/Non Drug Allergy do cumented on EMR Reaction Allergy Type Onset Date Status duloxetine Cymbalta([facility] Code:[address]-81) Diarrhea Drug Allergy Active Sulfa (for allergy use only) Unknown Drug Allergy Active ENCOUNTERS from 1950 to 2020-07-12 Encounter Location Date Provider Diagnosis [facility] [address] [place] [address] Jul Ashley Recore Pre-op testing Z01.818 and Ureteral ston e with hydronephrosis N13.2 IMMUNIZATIONS No Information SOCIAL HISTORY Tobacco Use: Social History Observation Description Date Details (start date - stop date) Never Smoker Sex Assigned At : Social History Observation Description Sex Assigned At Unknown Language: Question Answer Notes Languages spoken: Romanian Anglican: Question Answer Notes Anglican No voodoo beliefs that would impact health care. Alcohol [...] Information RESULTS No Results REASON FOR VISIT COVID test MEDICAL (GENERAL) HISTORY Type Description Date Medical [...] Treatment Notes Treatm ent Clinical Notes Jul, Pre-op testing (ICD-10 - Z01.818) Jul, Ureteral stone with hydronephrosis (ICD-10 - N13 .2) PLAN OF TREATMENT Treatment Notes Test Name Order Date Coronavirus 2019 Nasopharygeal (Send Out) COVID 2-02 Next Appt Details Provider Name:Alexander Vásquez, 2020-08 09:30:00 AM, [address], [place], [address], Insurance Providers Payer Name Payer Address Payer Phone Insured Name Patient Relati onship to Insured Coverage Start Date Coverage End Date MEDICARE Part A and B [address] [facility] [phone] ABRAHAM JORDAN [facility] [address] [facility] [id number] [phone] ABRAHAM JORDAN self
--- OUTSIDE RECORDS SUMMARY | 2020-08-03 06:21 | CCD ---
Author Author [facility] Organization [facility] Address Unknown Phone Unavailable Care Team Providers Care Java Developer Name Role Phone Jane VASQUEZ M.D. Unavailable Unavailable Jane VASQUEZ.Connie Unavailable Unavailable Jane VASQUEZ.Connie Unavailable Unavailable Jane VASQUEZ M.DMelida Unavailable Unavailable Jane VASQUEZ M.DMelida Unavailable Unavailable Jane VASQUEZ M.DMelida Unavailable Unavailable Jane VASQUEZ M.DMelida Unavailable Unavailable Jane VASQUEZ M.DMelida Unavailable Unavailable Jane VASQUEZ M.DMelida Unavailable Unavailable Jane VASQUEZ M.DMelida Unavailable Unavailable Jane VASQUEZ M.DMelida Unavailable Unavailable Jane VASQUEZ M.DMelida Unavailable Unavailable HURLBUT, CHERI PRODUCT SUPPORT ANALYST Unavailable Unavailable HURLBUT, CHERI PRODUCT SUPPORT ANALYST Unavailable Unavailable HURLBUT, CHERI PRODUCT SUPPORT ANALYST Unavailable Unavailable HURLBUT, CHERI PRODUCT SUPPORT ANALYST Unavailable Unavailable HURLBUT, CHERI PRODUCT SUPPORT ANALYST Unavailable Unavailable HURLBUT, CHERI PRODUCT SUPPORT ANALYST Unavailable Unavailable HURLBUT, CHERI PRODUCT SUPPORT ANALYST Unavailable Unavailable HURLBUT, CHERI PRODUCT SUPPORT ANALYST Unavailable Unavailable HURLBUT, CHERI PRODUCT SUPPORT ANALYST Unavailable Unavailable HURLBUT, CHERI PRODUCT SUPPORT ANALYST Unavailable Unavailable HURLBUT, CHERI PRODUCT SUPPORT ANALYST Unavailable Unavailable HURLBUT, CHERI PRODUCT SUPPORT ANALYST Unavailable Unavailable HURLBUT, CHERI PRODUCT SUPPORT ANALYST Unavailable Unavailable HURLBUT, CHERI PRODUCT SUPPORT ANALYST Unavailable Unavailable HURLBUT, CHERI PRODUCT SUPPORT ANALYST Unavailable Unavailable HURLBUT, CHERI PRODUCT SUPPORT ANALYST Unavailable Unavailable HURLBUT, CHERI PRODUCT SUPPORT ANALYST Unavailable Unavailable HURLBUT, CHERI PRODUCT SUPPORT ANALYST Unavailable Unavailable HURLBUT, CHERI PRODUCT SUPPORT ANALYST Unavailable Unavailable HURLBUT, CHERI PRODUCT SUPPORT ANALYST Unavailable Unavailable HURLBUT, CHERI PRODUCT SUPPORT ANALYST Unavailable Unavailable HURLBUT, CHERI PRODUCT SUPPORT ANALYST Unavailable Unavailable HURLBUT, CHERI PRODUCT SUPPORT ANALYST Unavailable Unavailable HURLBUT, CHERI PRODUCT SUPPORT ANALYST Unavailable Unavailable HURLBUT, CHERI PRODUCT SUPPORT ANALYST Unavailable Unavailable HURLBUT, CHERI PRODUCT SUPPORT ANALYST Unavailable Unavailable HURLBUT, CHERI PRODUCT SUPPORT ANALYST Unavailable Unavailable HURLBUT, CHERI PRODUCT SUPPORT ANALYST Unavailable Unavailable HURLBUT, CHERI PRODUCT SUPPORT ANALYST Unavailable Unavailable REGINE SAWYER MD Unavailable Unavailable REGINE SAWYER MD Unavailable Unavailable REGINE SAWYER MD Unavailable Unavailable REGINE SAWYER MD Unavailable Unavailable REGINE SAWYER MD Unavailable Unavailable REGINE SAWYER MD Unavailable Unavailable REGINE SAWYER MD Unavailable Unavailable REGINE SAWYER MD Unavailable Unavailable REGINE SAWYER MD Unavailable Unavailable REGINE SAWYER MD Unavailable Unavailable Jyothi Landon MD Unavailable Unavailable Jyothi Landon MD Unavailable Unavailable Jyothi Landon MD Unavailable Unavailable Jyothi Landon MD Unavailable Unavailable Jyothi Landon MD Unavailable Unavailable Jyothi Landon MD Unavailable Unavailable Jyothi Landon MD Unavailable Unavailable Jyothi Landon MD Unavailable Unavailable Jyothi Landon MD Unavailable Unavailable Jyothi Landon MD Unavailable Unavailable Jyothi Landon MD Unavailable Unavailable Jyothi Landon MD Unavailable Unavailable Jyothi Landon MD Unavailable Unavailable Jyothi Landon MD Unavailable Unavailable Jyothi Landon MD Unavailable Unavailable Jyothi Landon MD Unavailable Unavailable Jyothi Landon MD Unavailable Unavailable Jyothi Landon MD Unavailable Unavailable Jyothi Landon MD Unavailable Unavailable Jyothi Landon MD Unavailable Unavailable Jyothi Landon MD Unavailable Unavailable Jyothi Landon MD Unavailable Unavailable Jyothi Landon MD Unavailable Unavailable Jyothi Landon MD Unavailable Unavailable Jyothi Landon MD Unavailable Unavailable Jyothi Landon MD Unavailable Unavailable Jyothi Landon MD Unavailable Unavailable Jyothi Landon MD Unavailable Unavailable Jyothi Landon MD Unavailable Unavailable Jyohti Landon MD Unavailable Unavailable Jyothi Landon MD Unavailable Unavailable Jyothi Landon MD Unavailable Unavailable Jyothi Landon MD Unavailable Unavailable Jyothi Landon MD Unavailable Unavailable Jyothi Landon MD Unavailable Unavailable Jyothi Landon MD Unavailable Unavailable Jyothi Landon MD Unavailable Unavailable Jyothi Landon MD Unavailable Unavailable Jyothi Landon MD Unavailable Unavailable Jyothi Landon MD Unavailable Unavailable Jyothi Landon MD Unavailable Unavailable Jyothi Landon MD Unavailable Unavailable Jyothi Landon MD Unavailable Unavailable Jyothi Landon MD Unavailable Unavailable Jyothi Landon MD Unavailable Unavailable Jyothi Landon MD Unavailable Unavailable Jyothi Landon MD Unavailable Unavailable Jyothi Landon MD Unavailable Unavailable Jyothi Landon MD Unavailable Unavailable Jyothi Landon MD Unavailable Unavailable Jyothi Landon MD Unavailable Unavailable Jyothi Landon MD Unavailable Unavailable Jyothi Landon MD Unavailable Unavailable Jyothi Landon MD Unavailable Unavailable Jyothi Landon MD Unavailable Unavailable Jyothi Landon MD Unavailable Unavailable Jyothi Landon MD Unavailable Unavailable Jyothi Landon MD Unavailable Unavailable Jyothi Landon MD Unavailable Unavailable Jyothi Landon MD Unavailable Unavailable Jyothi Landon MD Unavailable Unavailable Jyothi Landon MD Unavailable Unavailable Jyothi Landon MD Unavailable Unavailable Jyothi Landon MD Unavailable Unavailable Jyothi Landon MD Unavailable Unavailable Jyothi Landon MD Unavailable Unavailable Jyothi Landon MD Unavailable Unavailable Jyothi Landon MD Unavailable Unavailable Jyothi Landon MD Unavailable Unavailable Jyothi Landon MD Unavailable Unavailable Jyothi Landon MD Unavailable Unavailable Jyothi Landon MD Unavailable Unavailable Jyothi Landon MD Unavailable Unavailable Jyothi Landon MD Unavailable Unavailable Jyothi Landon MD Unavailable Unavailable Jyothi Landon MD Unavailable Unavailable Sherrie Macario MD Unavailable Unavailable Sherrie Macario MD Unavailable Unavailable Sherrie Macario MD Unavailable Unavailable Sherrie Macario MD Unavailable Unavailable VaneenrocamSherrie MD Unavailable Unavailable VaneenenaamSherrie MD Unavailable Unavailable VaneenrocamSherrie MD Unavailable Unavailable Vaneenenaam, Sherrie Cadena MD Unavailable Unavailable VaneenenaamSherrie MD Unavailable Unavailable Vaneenenaam, Sherrie Cadena MD Unavailable Unavailable VaneenrocamSherrie MD Unavailable Unavailable Vanquang, Sherrie Cadena MD Unavailable Unavailable VanrosanaamSherrie MD Unavailable Unavailable Vaneenrocam, Sherrie Cadena MD Unavailable Unavailable Vaneenrocam, Sherrie Cadena MD Unavailable Unavailable Vaneenrocam, Sherrie Cadena MD Unavailable Unavailable VaneenrocamSherrie MD Unavailable Unavailable VanSherrie del rio MD Unavailable Unavailable Vaneendeyanira, Sherrie Cadena MD Unavailable Unavailable Vanquang, Sherrie Cadena MD Unavailable Unavailable Vanquang, Sherrie Cadena MD Unavailable Unavailable Vanquang, Sherrie Cadena MD Unavailable Unavailable Vanquang, Sherrie Cadena MD Unavailable Unavailable Sherrie Macario MD Unavailable Unavailable Sherrie Macario MD Unavailable Unavailable Sherrie Macario MD Unavailable Unavailable VanSherrie del rio MD Unavailable Unavailable VanSherrie del rio MD Unavailable Unavailable VaneenSherrie mcmillan MD Unavailable Unavailable VanSherrie del rio MD Unavailable Unavailable VanSherrie del rio MD Unavailable Unavailable Sherrie Macario MD Unavailable Unavailable Sherrie Macario MD Unavailable Unavailable Sherrie Macario MD Unavailable Unavailable Sherrie Macario MD Unavailable Unavailable Sherrie Macario MD Unavailable Unavailable Sherrie Macario MD Unavailable Unavailable Sherrie Macario MD Unavailable Unavailable VanSherrie del rio MD Unavailable Unavailable VanSherrie del rio MD Unavailable Unavailable VanSherrie del rio MD Unavailable Unavailable VanSherrie del rio MD Unavailable Unavailable Kocan, J Evy MAJOR ASSEMBLY INSPECTOR Unavailable Unavailable Kocan, J Evy MAJOR ASSEMBLY INSPECTOR Unavailable Unavailable Kocan, J Evy MAJOR ASSEMBLY INSPECTOR Unavailable Unavailable Kocan, J Evy MAJOR ASSEMBLY INSPECTOR Unavailable Unavailable Kocan, J Evy MAJOR ASSEMBLY INSPECTOR Unavailable Unavailable Kocan, J Evy MAJOR ASSEMBLY INSPECTOR Unavailable Unavailable Kocan, J Evy MAJOR ASSEMBLY INSPECTOR Unavailable Unavailable Kocan, J Evy MAJOR ASSEMBLY INSPECTOR Unavailable Unavailable Kocan, J Evy MAJOR ASSEMBLY INSPECTOR Unavailable Unavailable Kocan, J Evy MAJOR ASSEMBLY INSPECTOR Unavailable Unavailable Kocan, J Evy MAJOR ASSEMBLY INSPECTOR Unavailable Unavailable Kocan, J Evy MAJOR ASSEMBLY INSPECTOR Unavailable Unavailable Kocan, J Evy MAJOR ASSEMBLY INSPECTOR Unavailable Unavailable Ashley L Recore, WRNP Unavailable Unavailable Recore, Ashley Ifeoma WHNP Unavailable Unavailable Recore, Ashley Ifeoma WHNP Unavailable Unavailable Recore, Ashley Ifeoma WHNP Unavailable Unavailable Recore, Ashley Ifeoma WHNP Unavailable Unavailable Recore, Ashley Ifeoma WHNP Unavailable Unavailable Recore, Ashley Ifeoma WHNP Unavailable Unavailable Recore, Ashley Ifeoma WHNP Unavailable Unavailable Recore, Ashley Ifeoma WHNP Unavailable Unavailable Recore, Ashley Ifeoma WHNP Unavailable Unavailable Recore, Ashley Ifeoma WHNP Unavailable Unavailable Recore, Ashley Ifeoma WHNP Unavailable Unavailable Recore, Ashley Ifeoma WHNP Unavailable Unavailable Recore, Ashley Ifeoma WHNP Unavailable Unavailable Recore, Ashley Ifeoma WHNP Unavailable Unavailable Recore, Ashley Ifeoma WHNP Unavailable Unavailable Recore, Ashley Ifeoma WHNP Unavailable Unavailable Recore, Ashley Ifeoma WHNP Unavailable Unavailable Recore, Ashley Ifeoma WHNP Unavailable Unavailable Recore, Ashley Ifeoma WHNP Unavailable Unavailable Recore, Ashley Ifeoma WHNP Unavailable Unavailable Recore, Ashley Ifeoma WHNP Unavailable Unavailable Recore, Ashley Ifeoma WHNP Unavailable Unavailable Recore, Ashley Ifeoma WHNP Unavailable Unavailable Recore, Ashley Ifeoma WHNP Unavailable Unavailable Recore, Ashley Ifeoma WHNP Unavailable Unavailable Recore, Ashley Ifeoma WHNP Unavailable Unavailable Recore, Ashley Ifeoma WHNP Unavailable Unavailable Recore, Ashley Ifeoma WHNP Unavailable Unavailable Recore, Ashley Ifeoma WHNP Unavailable Unavailable Recore, Ashley Ifeoma WHNP Unavailable Unavailable Recore, Ashley Ifeoma WHNP Unavailable Unavailable Recore, Ashley Ifeoma WHNP Unavailable Unavailable Recore, Ashley Ifeoma WHNP Unavailable Unavailable PAIGEMABLE Muhammad MD Unavailable Unavailable PAIGEMABLE Muhammad MD Unavailable Unavailable PAIGEMABLE Muhammad MD Unavailable Unavailable PAIGEMABLE Muhammad MD Unavailable Unavailable PAIGEMABLE Muhammad MD Unavailable Unavailable PAIGEMABLE Muhammad MD Unavailable Unavailable PAIGEMABLE Muhammad MD Unavailable Unavailable PAGIEMABLE Muhammad MD Unavailable Unavailable PAIGEMABLE Muhammad MD Unavailable Unavailable PAIGEMABLE Muhammad MD Unavailable Unavailable PAIGEMABLE Muhammad MD Unavailable Unavailable PAIGE, MABLE DESAI MD Unavailable Unavailable PAIGE, MABLE DESAI MD Unavailable Unavailable PAIGE, MABLE DESAI MD Unavailable Unavailable PAIGE, MABLE DESAI MD Unavailable Unavailable PAIGE, MABLE DESAI MD Unavailable Unavailable PAIGE, MABLE DESAI MD Unavailable Unavailable PAIGE, PRYLINDA DESAI MD Unavailable Unavailable PAIGE, MABLE DESAI MD Unavailable Unavailable PAIGE, MABLE DESAI MD Unavailable Unavailable PAIGE, MABLE DESAI MD Unavailable Unavailable PAIGE, MABLE DESAI MD Unavailable Unavailable PAIGE, MABLE DESAI MD Unavailable Unavailable PAIGE, MABLE DESAI MD Unavailable Unavailable PAIGE, MABLE DESAI MD Unavailable Unavailable PAIGE, MABLE DESAI MD Unavailable Unavailable PAIGE, MABLE DESAI MD Unavailable Unavailable PAIGE, MABLE DESAI MD Unavailable Unavailable Fish, [facility], PA-C Unavailable Unavailabl e Fish, [facility], PA-C Unavailable Unavailabl e Fish, [facility], PA-C Unavailable Unavailabl e Fish, [facility], PA-C Unavailable Unavailabl e Fish, [facility], PA-C Unavailable Unavailabl e Fish, [facility], PA-C Unavailable Unavailabl e Fish, [facility], PA-C Unavailable Unavailabl e Fish, [facility], PA-C Unavailable Unavailabl e Fish, [facility], PA-C Unavailable Unavailabl e Fish, [facility], PA-C Unavailable Unavailabl e Fish, [facility], PA-C Unavailable Unavailabl e Fish, [facility], PA-C Unavailable Unavailabl e Fish, [facility], PA-C Unavailable Unavailabl e Fish, [facility], PA-C Unavailable Unavailabl e Fish, [facility], PA-C Unavailable Unavailabl e Fish, [facility], PA-C Unavailable Unavailabl e Fish, [facility], PA-C Unavailable Unavailabl e Fish, [facility], PA-C Unavailable Unavailabl e Fish, [facility], PA-C Unavailable Unavailabl e Fish, [facility], PA-C Unavailable Unavailabl e Fish, [facility], PA-C Unavailable Unavailabl e Fish, [facility], PA-C Unavailable Unavailabl e Fish, [facility], PA-C Unavailable Unavailabl e Fish, [facility], PA-C Unavailable Unavailabl e Fish, [facility], PA-C Unavailable Unavailabl e Fish, [facility], PA-C Unavailable Unavailabl e Fish, [facility], PA-C Unavailable Unavailabl e Fish, [facility], PA-C Unavailable Unavailabl e Fish, [facility], PA-C Unavailable Unavailabl e Fish, [facility], PA-C Unavailable Unavailabl e Fish, [facility], PA-C Unavailable Unavailabl e Fish, [facility], PA-C Unavailable Unavailabl e Fish, [facility], PA-C Unavailable Unavailabl e Fish, [facility], PA-C Unavailable Unavailabl e LAMAY, STAMP REDEMPTION CLERK CHERI Unavailable Unavailable Recore, Ashley Ifeoma WHNP Unavailable Unavailable Recore, Ashley Ifeoma WHNP Unavailable Unavailable Recore, Ashley Ifeoma WHNP Unavailable Unavailable Recore, Ashley Ifeoma WHNP Unavailable Unavailable Recore, Ashley Ifeoma WHNP Unavailable Unavailable Recore, Ashley Ifeoma WHNP Unavailable Unavailable Recore, Ashley Ifeoma WHNP Unavailable Unavailable Recore, Ashley Ifeoma WHNP Unavailable Unavailable Recore, Ashley Ifeoma WHNP Unavailable Unavailable Recore, Ashley Ifeoma WHNP Unavailable Unavailable Recore, Ashley Ifeoma WHNP Unavailable Unavailable Recore, Ashley Ifeoma WHNP Unavailable Unavailable Recore, Ashley Ifeoma WHNP Unavailable Unavailable Recore, Ahsley Ifeoma WHNP Unavailable Unavailable Recore, Ashley Ifeoma WHNP Unavailable Unavailable Recore, Ashley Ifeoma WHNP Unavailable Unavailable Recore, Ashley Ifeoma WHNP Unavailable Unavailable Recore, Ashley Ifeoma WHNP Unavailable Unavailable Recore, Ashley Ifeoma WHNP Unavailable Unavailable Recore, Ashley Ifeoma WHNP Unavailable Unavailable Recore, Ashley Ifeoma WHNP Unavailable Unavailable Recore, Ashley Ifeoma WHNP Unavailable Unavailable Recore, Ashley Ifeoma WHNP Unavailable Unavailable Recore, Ashley Ifeoma WHNP Unavailable Unavailable Recore, Ashley Ifeoma WHNP Unavailable Unavailable Recore, Ashley Ifeoma WHNP Unavailable Unavailable Recore, Ashley Ifeoma WHNP Unavailable Unavailable Recore, Ahsley Ifeoma WHNP Unavailable Unavailable Recore, Ashley Ifeoma WHNP Unavailable Unavailable Recore, Ashley Ifeoma WHNP Unavailable Unavailable Recore, Ashley Ifeoma WHNP Unavailable Unavailable Recore, Ashley Ifeoma WHNP Unavailable Unavailable Recore, Ashley Ifeoma WHNP Unavailable Unavailable Jyothi Landon MD Unavailable Unavailable Jyothi Landon MD Unavailable Unavailable Jyothi Landon MD Unavailable Unavailable Jyothi Landon MD Unavailable Unavailable Jyothi Landon MD Unavailable Unavailable Jyothi Landon MD Unavailable Unavailable Jyothi Landon MD Unavailable Unavailable Jyothi Landon MD Unavailable Unavailable Jyothi Landon MD Unavailable Unavailable Jyothi Landon MD Unavailable Unavailable Jyothi Landon MD Unavailable Unavailable Jyothi Landon MD Unavailable Unavailable Jyothi Landon MD Unavailable Unavailable Jyothi Landon MD Unavailable Unavailable Jyothi Landon MD Unavailable Unavailable Jyothi Landon MD Unavailable Unavailable Jyothi Landon MD Unavailable Unavailable Jyothi Landon MD Unavailable Unavailable Jyothi Landon MD Unavailable Unavailable Jyothi Landon MD Unavailable Unavailable Jyothi Landon MD Unavailable Unavailable Jyothi Landon MD Unavailable Unavailable Jyothi Landon MD Unavailable Unavailable Jyothi Landon MD Unavailable Unavailable Jyothi Landon MD Unavailable Unavailable Jyothi Landon MD Unavailable Unavailable Jyothi Landon MD Unavailable Unavailable Jyothi Landon MD Unavailable Unavailable Jyothi Landon MD Unavailable Unavailable Jyothi Landon MD Unavailable Unavailable Jyothi Landon MD Unavailable Unavailable Jyothi Landon MD Unavailable Unavailable Jyothi Landon MD Unavailable Unavailable Jyothi Landon MD Unavailable Unavailable Jyothi Landon MD Unavailable Unavailable Jyothi Landon MD Unavailable Unavailable Jyothi Landon MD Unavailable Unavailable Jyothi Landon MD Unavailable Unavailable Jyothi Landon MD Unavailable Unavailable Jyothi Landon MD Unavailable Unavailable Jyothi Landon MD Unavailable Unavailable Jyothi Landon MD Unavailable Unavailable Jyothi Landon MD Unavailable Unavailable Jyothi Landon MD Unavailable Unavailable Jyothi Landon MD Unavailable Unavailable Jyothi Landon MD Unavailable Unavailable Jyothi Landon MD Unavailable Unavailable Jyothi Landon MD Unavailable Unavailable Jyothi Landon MD Unavailable Unavailable Jyothi Landon MD Unavailable Unavailable Jyothi Landon MD Unavailable Unavailable Jyothi Landon MD Unavailable Unavailable Jyothi Landon MD Unavailable Unavailable Jyothi Landon MD Unavailable Unavailable Jyothi Landon MD Unavailable Unavailable Jyothi Landon MD Unavailable Unavailable Jyothi Landon MD Unavailable Unavailable Jyothi Landon MD Unavailable Unavailable Jyothi Landon MD Unavailable Unavailable Jyothi Landon MD Unavailable Unavailable Jyothi Landon MD Unavailable Unavailable Jyothi Landon MD Unavailable Unavailable Jyothi Landon MD Unavailable Unavailable Jyothi Landon MD Unavailable Unavailable Jyothi Landon MD Unavailable Unavailable Jyothi Landon MD Unavailable Unavailable Jyothi Landon MD Unavailable Unavailable Jyothi Landon MD Unavailable Unavailable Jyothi Landon MD Unavailable Unavailable Jyothi Landon MD Unavailable Unavailable Jyothi Landon MD Unavailable Unavailable Jyothi Landon MD Unavailable Unavailable Jyothi Landon MD Unavailable Unavailable Jyothi Landon MD Unavailable Unavailable Jyothi Landon MD Unavailable Unavailable Jyothi Landon MD Unavailable Unavailable GALIMIDI ORESTES DPM, J Orestes DPM Unavailable GALIMIDI ORESTES DPM, J Orestes DPM Unavailable GALIMIDI ORESTES DPM, J Orestes DPM Unavailable GALIMIDI ORESTES DPM, J Orestes DPM Unavailable GALIMIDI ORESTES DPM, J Orestes DPM Unavailable [phone] GALIMIDI ORESTES DPM, J Orestes DPM Unavailable GALIMIDI ORESTES DPMCa DPM Unavailable HANSA CARLISLE DPMCa DPM Unavailable HANSA CARLISLE DPMCa DPM Unavailable Re-disclosure Warning The records that you are about to access may contain information from federally-assisted alcohol or drug abuse programs. If such information is present, then the following federally mandated warning applies: This information has been disclosed to you from records protected by federal confidentiality rules (42 CFR part 2). The federal rules prohibit you from making any further disclosure of this information unless further disclosure is expressly permitted by the written consent of the person to whom it pertains or as otherwise permitted by 42 CFR part 2. A general authorization for the release of medical or other information is NOT sufficient for this purpose. The Federal rules restrict any use of the information to criminally investigate or prosecute any alcohol or drug abuse patient.The records that you are about to access may contain highly sensitive health information, the redisclosure of which is protected by Article 27-F of the [facility] Public [facility] law. If you continue you may have access to information: Regarding HIV / AIDS; Provided by facilities licensed or operated by the [facility] Office of Mental Health; or Provided by the [facility] Office for People With Developmental Disabilities. If such information is present, then the following [facility] mandated warning applies: This information has been disclosed to you from confidential records which are protected by state law. State law prohibits you from making any further disclosure of this information without the specific written consent of the person to whom it pertains, or as otherwise permitted by law. Any unauthorized further disclosure in violation of state law may result in a fine or intermediate sentence or both. A general authorization for the release of medical or other information is NOT sufficient authorization for further disc losure. Allergies and Adverse Reactions Type Description Substance Reaction Status Data Source(s ) Drug allergy [facility] S[facility]FA S[facility]FA Unknown Active eCW1 ([facility]) SULFA SULFA SULFA Unknown Active eCW1 ([facility]) Encounters Encounter Providers Location Date Indications Data Source(s ) Outpatient Attender: Ashley Tello [facility] 021 09:19:00 AM [facility] [place] [address] [address] 07/20/2020 12:00:00 AM EST eCW1 ([facility]) Outpatient CPSCAORT-LABEJN 07/10/2020 08:22:00 PM [facility] Outpatient Attender: [facility] Ashley BartlettreAttender: Ashley Tello [facility] ED-LAB 07/10/2020 02:38:00 PM EST - 07/10/2020 02:39:00 PM EST R300 [facility] R300 Patient discharged. [place] [address] [address] 07/10/2020 12:00:00 AM EST eCW1 ([facility]) [place] [address] [address] 07/09/2020 12:00:00 AM EST eCW1 ([facility]) [place] [address] [address] 06/29/2020 12:00:00 AM EST eCW1 ([facility]) Outpatient Attender: CHERI VILLEGAS NPAttender: CHERI GRANT ER-RAD 06/26/2020 11:00:00 AM [facility] Outpatient Attender: CHERI VILLEGAS NPAttender: CHERI GRANT ER-LAB 06/21/2020 02:07:00 PM [facility] Outpatient Attender: Daniel Landon MD ER-LAB-PNP 04/26/2020 01:12:00 PM [facility] 03/12/2020 12:00:00 AM EDT eCW1 ([facility] ([facility]) [facility] ([place]) 2019 12:00:00 AM EDT eCW1 ([facility]) R Attender: Courtney SPENCER, VANDANAC ED-PRSGHPT 02/28/2020 01:01:00 PM EDT - 03/02/2020 12:01:00 AM EDT LEFT HIP REPLACEMENT [facility] LEFT HIP REPLACEMENT Patient discharged. R Attender: Courtney SPENCER PA-C ED-PRSPT 02/02/2020 01:00:00 PM EDT - 02/06/2020 12:01:00 AM EDT [facility] HIP REPLACEMENT [facility] LEFT HIP REPLACEMENT Patient discharged. Outpatient Attender: Daniel Landon MD ER-LAB-PNP 01/19/2020 01:02:00 PM EDT [facility] R Attender: Courtney SPENCER PA-C ED-PRSPT 01/05/2020 01:00:00 PM EDT - 01/06/2020 12:01:00 AM EDT [facility] HIP REPLACEMENT [facility] LEFT HIP REPLACEMENT Patient discharged. Outpatient Attender: Daniel Landon MD ED-LAB 12/20/2019 03:28:00 PM EDT - 12/20/2019 03:29:00 PM EDT [facility] Patient discharged. R Attender: VANDANA BalesCAttender: Sherrie Macario MD ED-PRSPT 12/06/2019 12:52:00 PM EDT - 12/06/2019 12:01:00 AM EDT [facility] HIP REPLACEMENT [facility] LEFT HIP REPLACEMENT Patient discharged. (F/U) Follow Up Visit MD Levi Thakur C ([place]) 11/07/2019 12:00:00 AM EDT eCW1 (Daniel SILVA) Outpatient Attender: Daniel Landon MD ED-IMAG 11/04/2019 01:18:00 PM EDT - 11/04/2019 01:19:00 PM EDT I10 [facility] I10 Patient discharged. Outpatient Attender: Daniel Landon MD ER-LAB-PNP 10/18/2019 11:57:00 AM EDT [facility] Outpatient Attender: LLOYD GIBSON MD ER-ASUR 10/17/2019 11:30:00 AM EDT [facility] Admission cancelled. Disregard status an d admitted date. (OR) Operating Room [facility] ([place]) 10/17/2019 12:00:00 AM EDT eCW1 ([facility]) Outpatient Attender: LLOYD GIBSON MD [facility] 10/14/2019 09:00:00 AM EDT [facility] Outpatient Attender: LLOYD GIBSON MD 10/10/2019 01:00:00 PM EDT [facility] Daniel oliva MD PC ([place]) 10/10/2019 12:00:00 AM EDT eCW1 ([facility]) [facility] ([place]) [facility] ([place]) 09/05/2019 12:00:00 AM EDT eCW1 ([facility]) [facility] ([place]) [facility] ([place]) 08/31/2019 12:00:00 AM EDT eCW1 ([facility]) [facility] ([place]) [facility] ([place]) 08/22/2019 12:00:00 AM EDT eCW1 ([facility]) [facility] ([place]) [facility] ([place]) 08/12/2019 12:00:00 AM EST eCW1 ([facility]) [facility] ([place]) [facility] ([place]) 08/12/2019 12:00:00 AM EST eCW1 ([facility]) Outpatient Attender: Orestes CARLISLE DPM DPM CPSCAORT- CPSCNPOD 07/26/2019 02:29:00 PM EST - 07/26/2019 02:30:00 PM EST [facility] Patient discharged. Outpatient Attender: Sherrie Macario MD Physical Therap y 07/21/2019 12:30:00 PM EST [facility] ([facility]) Outpatient Attender: Evy Cr IVA CPSCAORT-CPSGNPMC 04/09 09:07:00 AM [facility] - 05/04/2019 09:08:00 AM [facility]. Outpatient Attender: REGINE SAWYER MD 04/29/2019 02:13:0 0 PM [facility] Outpatient Attender: REGINE SAWYER MD 04/01/2019 02:05:0 0 PM [facility] Outpatient Attender: BERTHA VASQUEZ M.D. CPSCAORT-CPSGNPMC 03/22 09:23:00 PM [facility] Outpatient Attender: BERTHA VASQUEZ M.D. CPSCAORT-CPSGNSUR 03/08 07:51:00 AM T - 03/08/2019 07:52:00 AM [facility] Patient discharged. Outpatient Attender: REGINE SAWYER MD ER-CAN 03/07/2019 10:02:0 0 AM [facility] Outpatient Attender: Daniel Landon MD ER-RAD 03/03/2019 01:5 6:00 PM [facility] Outpatient Attender: Daniel Landon MD ER-MOB 01/06/2019 11:4 3:00 AM [facility] Outpatient Attender: Daniel Landon MD ER-LAB-PNP 10/20/2018 12:48:00 PM [facility] Medications Medication Brand Name Start Date Product Form Dose Route Admi nistrative Instructions Pharmacy Instructions Status Indications Reaction Description Data Source(s) rivaroxaban 10 MG Oral Tablet [Xarelto] Xarelto 11/14/2019 12:00:0 0 AM EDT ORAL active [facility] ([facility]) Mupirocin 0.02 MG/MG Topical Ointment [Bactroban] Bactroban 08/23/2019 12:00:00 AM EDT active [facility] ([facility]) chlorhexidine gluconate 40 MG/ML Medicated Liquid Soap [Hibi clens] Hibiclens 08/23/2019 12:00:00 AM EDT TOPICAL active [facility] ([facility]) Insurance Providers Payer name Policy type / Coverage type Policy ID Covered constitution party ID Covered constitution party's relationship to flaherty Policy [place] Plan Information [facility] [id number] SP [id number] BCBS [place] [id number] SP [id number] MEDICARE [id number] SP [id number] BLUE CROSS [id number] S [id number] MEDICARE [id number] S [id number] [facility] [id number] S [id number] MCRB [id number] S [id number] MEDICARE [id number] S [id number] [place] [id number] S [id number] [facility] [id number] SP [id number] MEDICARE [id number] Retired [id number] [employer] E[place] [id number] Retired [id number] BLUE CROSS [id number] S [id number] MEDICARE [id number] S [id number] A BCBS EMPIRE [place] DIV [id number] SP [id number] MEDICARE [id number] Retired [id number] A MEDICARE [id number] S [id number] A [place] [id number] S [id number] [place] [id number] S [id number] ANSI-Commercial [id number] ANSI-Medicare Part B [id number] BLUE CROSS [id number] S [id number] [facility] [id number] S [id number] MCRB [id number] S [id number] A [facility] [id number] S [id number] EMPIRE BLUE CROSS -O/P [id number] 18 [id number] MEDICARE -O/P [id number] 18 [id number] A Problems, Conditions, and Diagnoses Code Display Name Description Problem Type Effective Dates Data Source(s) Z01.818 Pre-procedure evaluation check Pre-op testing Problem 07/10/2020 12:00:00 AM EST eCW1 ([facility]) N13.2 Hydronephrosis with renal and ureteral c alculous obstruction Ureteral stone with hydronephrosis Problem 06/29/2020 12:00:00 AM EST eCW1 ([facility]) D03.62 [id number] 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, including shoulder Problem 09/05/2019 12:00:00 AM EDT eCW1 ([facility]) D03.62 [id number] 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, including shoulder Problem 09/05/2019 12:00:00 AM EDT eCW1 ([facility]) [id number] Essential hypertension Essential hypertension Problem 07/21/2019 12:00:00 AM EST [facility] ([facility]) N13.2 Hydronephrosis with renal and ureteral c alculous obstruction HYDRONEPHROSIS WITH RENAL AND URETERAL C Diagnosis 07/30/2020 09:19:00 AM [facility] Z01.818 Encounter for other preprocedural examin ation ENCOUNTER FOR OTHER PREPROCEDURAL EXAMINATION Diagnosis 07/30/2020 09:19:00 AM [facility] R30.0 Dysuria DYSURIA Diagnosis 07/10/2020 02:38:00 PM [facility] N20.0 Calculus of kidney CALCULUS OF KIDNEY Diagnosis 11:00:00 AM [facility] R82.90 Unspecified abnormal findings in urine U NSPECIFIED ABNORMAL FINDINGS IN URINE Diagnosis 06/21/2020 02:07:00 PM [facility] Z12.5 Encounter for screening for malignant ne oplasm of prostate ENCOUNTER FOR SCREENING FOR MALIGNANT NE Diagnosis 04/26/2020 01:12:00 PM [facility] I10 Essential (primary) hypertension I10 Diagnosis 01:12:00 PM [facility] Z96.642 Presence of left artificial hip joint IA ESENCE OF LEFT ARTIFICIAL HIP JOINT Diagnosis 02/28/2020 01:01:00 PM [facility] frankie M62.81 Muscle weakness (generalized) MUSCLE WEAKNESS (GENERAL IZED) Diagnosis 02/28/2020 01:01:00 PM [facility] M25.552 Pain in left hip PAIN IN LEFT HIP Diagnosis 02/28/2020 01 :01:00 PM [facility] E03.9 Hypothyroidism, unspecified HYPOTHYROIDISM, UNSPECIFIE D Diagnosis 01/19/2020 01:02:00 PM [facility] E03.8 Other specified hypothyroidism OTHER SPECIFIED HYPOTHY ROIDISM Diagnosis 01/19/2020 01:02:00 PM [facility] 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.9 Disorder of puberty, unspecified DISORDER OF PUB ERTY, UNSPECIFIED Diagnosis 01/19/2020 01:02:00 PM [facility] E03.9 Hypothyroidism, unspecified HYPOTHYROIDISM, UNSPECIFIE D Diagnosis 12/20/2019 03:28:00 PM [facility] I10 Essential (primary) hypertension ESSENTIAL (PRIMARY) H YPERTENSION Diagnosis 11/04/2019 01:18:00 PM [facility] M25.552 Pain in left hip PAIN IN LEFT HIP Diagnosis 10/18/2019 11 :57:00 AM [facility] E78.2 Mixed hyperlipidemia MIXED HYPERLIPIDEMIA Diagnosis 10/18/2019 11:57:00 AM [facility] L90.5 Scar conditions and fibrosis of skin SCAR CONDIT IONS AND FIBROSIS OF SKIN Diagnosis 10/17/2019 11:30:00 AM [facility] D03.62 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, inc luding shoulder MELANOMA IN SITU OF LEFT UPPER LIMB, INCLUDING SHOULDER Diagnosis 10/17/2019 11:30:00 A M [facility] Z11.59 Encounter for screening for other viral diseases ENCOUNTER FOR SCREENING FOR OTHER VIRAL DISEASES Diagnosis 10/14/2019 09:00:00 AM [facility] Z01.812 Encounter for preprocedural laboratory e xamination ENCOUNTER FOR PREPROCEDURAL LABORATORY EXAMINATION Diagnosis 10/14/2019 09:00:00 AM [facility] M20.42 Other hammer toe(s) (acquired), left belkis t OTHER HAMMER TOE(S) (ACQUIRED), LEFT FOOT Diagnosis 07/26/2019 02:29:00 PM [facility] Surgeries/Procedures Procedure Description Date Indications Data Source(s) URNLS DIP STICK/TABLET REAGENT AUTO MICROSCOPY URINALYSIS AU TO W/SCOPE 07/10/2020 12:00:00 AM [facility] THERAPEUTIC PX 1/> AREAS EACH 15 MIN EXERCISES THERAPEUTIC E XERCISES 02/07/2020 12:00:00 AM [facility] X-Ray Hip Unilateral With Pelvis 2-3 Views 12/21/2019 12:00:00 AM [facility] ([facility] ) [address] PT EVAL LOW COMPLEX 20 MIN 11/29/2019 12:00:00 AM [facility] ARTHRP ACETBLR/PROX FEM PROSTC AGRFT/ALGRFT 11/09/2019 12:00:00 AM EDT [facility] ARTHRP ACETBLR/PROX FEM PROSTC AGRFT/ALGRFT 11/09/2019 12:00:00 AM EDT [facility] ([facility] ) [address] X-RAY EXAM CHEST 2 VIEWS 11/04/2019 12:00:00 AM [facility] outpatient clinic visit for assessment and ma nagement of a patient Hospital Outpatient Clinic Visit 07/26/2019 12:00:00 AM [facility] X-Ray Hip Unilateral With Pelvis 2-3 Views 07/21/2019 12:00:00 AM EST [facility] Results ID Date Data Source [id number] 07/30/2020 10:04:00 AM [facility] Exam Number: [id number] OF EXAMINATIO N: 07/30/2020 9:41 ESTCHEST, TWO VIEWSHISTORY: HydronephrosisTECHNIQUE: PA and lateral radiographs of the chestCOMPARISON: 01/06/2019FINDINGS:No evidence of focal consolidation, pneumothorax or large pleuraleffusion. Lungs are clear. Mediastinal structures are unremarkable. Noaggressive osseous lesions.IMPRESSION:No focal consolidation.Electronically signed in PS360 by: Manjinder Rayo M.D. :53 EST Reported By: Blanca RAYO M.D. Signed By: Helen RAYO M.D. Name Value Range Interpretation Code Description Data Talita rce(s) Supporting Document(s) ID Date Data Source [id number] 08/01/2020 11:23:00 AM EST [facility] Name Value Range Interpretation Code Description Data Talita rce(s) Supporting Document(s) [facility] ID Date Data Source [id number] 07/30/2020 10:45:00 AM EST [facility] Name Value Range Interpretation Code Description Data [facility] rce(s) Supporting Document(s) GLU 83 mg/dL 70-110 [facility] Patients taking Sulfasalazine may have f alsely depressedGlucose levels. Patients taking Sulfapyridine may havefalsely elevated Glucose levels. Patients should be drawnfor Glucose before the initial administration of eitherdrug. BUN 21 mg/dL 7-23 [facility] CRE 0.790 mg/dL 0.500-1.300 [facility] GFR > 60 mL/min [facility] CHLORIDE 108 mmol/L 99-110 [facility] NA 144 mmol/L 136-147 [facility] POTASSIUM 4.1 mmol/L 3.5-5.1 [facility] TCO2 31 mmol/L 20-33 [facility] ANION GAP 9.1 10.0-20.0 L [facility] CA 10.3 mg/dL 8.3-10.7 [facility] ID Date Data Source [id number] 07/30/2020 10:28:00 AM EST [facility] What anti-coagulants is pt. on ?? NONE Name Value Range Interpretation Code Description Data [facility] rce(s) Supporting Document(s) APTT 25.6 SECONDS 21.2-31.2 [facility] NOTE NEW REFERENCE RANGE EFFECTIVE ID Date Data Source [id number] 07/30/2020 10:28:00 AM EST [facility] What anti-coagulants is pt. on ?? NONE Name Value Range Interpretation Code Description Data Tal[facility] rce(s) Supporting Document(s) INR 0.95 0.91-1.09 [facility] INR THERAPEUTIC RANGES Prophylaxis of ve nous thrombosis ] (high risk surgery) ]Treatment of venous thrombosis ]Treatment of pulmonary embolism ]Prevention of systemic embolism ] 2.0-3.0Tissue heart valves ]Acute myocardial infarction ]Valvular disease ]Atrial fibrillation ]Recurrent systemic embolism ] Mechanical prosthetic heart valves -------- 2.5-3.5 ID Date Data Source [id number] 07/30/2020 10:20:00 AM EST [facility] Name Value Range Interpretation Code Description Data Tal[facility] rce(s) Supporting Document(s) URINE COLOR DK YELLOW [facility] UAPR Clear [facility] UGLU Negative NEGATIVE [facility] URINE BILIRUBIN [facility] Trace NEGATIVE [facility] USG 1.024 1.010-1.025 [facility] UBLO 2+ NEGATIVE [facility] UpH 6.0 5.0-8.0 [facility] UPRO Negative Negative [facility] UUB 0.2 mg/dL 0.2-1.0 [facility] UNIT Negative Negative [facility] ULEU Negative Negative [facility] ID Date Data Source [id number] 07/30/2020 10:20:00 AM EST [facility] Name Value Range Interpretation Code Description Data Talita rce(s) Supporting Document(s) URINE RBC 11-20 RBCs/HPF NONE SEEN [facility] URINE WBC 0-2 WBCs/HPF NONE SEEN [facility] URINE BACTERIA None Seen NONE SEEN [facility] URINE EPI. Rare NONE SEEN [facility] ID Date Data Source [id number] 07/30/2020 10:00:00 AM EST [facility] Name Value Range Interpretation Code Description Data Tal[facility] rce(s) Supporting Document(s) WBC 7.43 x10E3/uL 4.0-10.5 [facility] RBC 4.94 x10E6/uL 4.70-6.00 [facility] Hemoglobin 14.4 g/dL 14.0-18.0 N [facility] Hematocrit 44.6 % 42.0-52.0 [facility] MCV 90.3 fL 81.0-99.0 N [facility] MCH 29.1 pg 27.0-31.0 [facility] MCHC 32.3 g/dL 32.7-35.6 L [facility] RDW 13.6 % 11.5-14.0 [facility] Platelet count 267 x10E3/uL 150-450 N [facility] ital MPV 9.6 fl 6.9-9.5 H [facility] Neutrophils 53.7 % 34-64 N [facility] Lymphocytes 32.3 % 25-45 N [facility] Monocytes 9.6 % 1.7-10.6 N [facility] Eosinophils 3.2 % 0.4-7.0 [facility] Basophils 0.9 % 0.1-2.0 [facility] Imm. Gran. 0.3 % 0.1-2.0 [facility] Abs. Neutro. 3.99 x10E3/uL 1.2-7.6 N [facility] Abs. Lymph. 2.40 x10E3/uL 1.0-3.5 N [facility] Abs. [place]. 0.71 x10E3/uL 0.1-1.0 N [facility] Abs. Eosin. 0.24 x10E3/uL 0.1-0.7 N [facility] Abs. Baso. 0.07 x10E3/uL 0.0-0.1 N [facility] Abs. Imm. Gran. 0.02 x10E3/uL 0.0-0.1 N [facility] spital ANRBC% 0 % 0 [facility] ID Date Data Source [id number] 08/01/2020 04:37:00 AM EST [facility] Name Value Range Interpretation Code Description Data Tal[facility] rce(s) Supporting Document(s) COVID19 RHEONIX Negative NEGATIVE N [facility] The Rheonix COVID-19 MDx Assay is an end point RT-PCR assayintended for the qualitative detection of nucleic acid gyorNVQJ-EcR-4 virus. Positive results are indicative of thepresence of SARS-CoV-2 RNA; clinical correlation withpatient history and other diagnostic information isnecessary to determine patient infection status. Negativeresults do not preclude SARS-CoV-2 infection and should notbe used as the sole basis for patient management decisions. The RheAndtixx MDx Assay is only for use under the Food andDrug Administration's Emergency Use Authorization. ID Date Data Source [id number] 07/12/2020 08:38:00 AM [facility] Name Value Range Interpretation Code Description Data Talita rce(s) Supporting Document(s) [facility] Date Data Source [id number] 07/12/2020 07:21:00 AM [facility] Name Value Range Interpretation Code Description Data Talita rce(s) Supporting Document(s) Urine Culture [facility] ospital ID Date Data Source [id number] 07/10/2020 03:35:00 PM [facility] Name Value Range Interpretation Code Description Data Talita rce(s) Supporting Document(s) Color,Urine Colorl-Dk Y Normal (applies to non-numeric res ults) [facility] Clarity,Urine Clear Normal (applies to non-numeric re sults) [facility] Specific [place],Urine 1.005-1.030 Normal (applies to non- numeric results) [facility] pH,Urine 5.0-8.0 Normal (applies to non-numeric resul ts) [facility] Protein,Urine Negative Normal (applies to non-numeric re sults) [facility] Glucose,Urine Negative Normal (applies to non-numeric re sults) [facility] Ketones,Urine Negative [facility] braden Blood,Urine Negative [facility] l Bilirubin,Urine Negative [facility] pital Urobilinogen,Urine 0.2-1.0 Normal (applies to non-numer ic results) [facility] Leukocyte Esterase,Urine Negative Normal (applies to non -numeric results) [facility] Nitrite,Urine Negative Normal (applies to non-numeric re sults) [facility] ID Date Data Source [id number] 07/10/2020 03:35:00 PM EST [facility] Name Value Range Interpretation Code Description Data Tal[facility] rce(s) Supporting Document(s) RBC,Urine None Seen [facility] WBC,Urine None Seen [facility] Casts,Urine None Seen [facility] l Squamous Cells,Urine None Seen [facility] Bacteria,Urine None Seen [facility] ital Mucus,Urine None Seen [facility] l ID Date Data Source [id number] 06/26/2020 11:28:00 AM EST [facility] Exam Number: [id number] OF EXAMINATIO N: 06/26/2020 11:02 ESTCT ABD&PEL W/O IV OR ORAL CONTHISTORY: Difficulty urinating. Renal calculi.TECHNIQUE:This CT exam was performed using the following dose reductiontechniques: automated exposure control, adjustment of mA and/or kVaccording to the patient's size, and use of iterative reconstructiontechnique.Standard contiguous axial spiral imaging was o btained from the dome ofthe diaphragms through the symphysis pubis without oral contrast andwithout intravenous contrast administration and with coronalreformatting.FINDINGS:Lower thorax: UnremarkableABDOMEN:Liver: Small cyst in the lateral segment of left hepatic lobeGallbladder and bile ducts: Sludge versus small stones in thedependent portion of the gallbladder. No gallbladder wall thickeningor biliary dilatationPancreas: UnremarkableSpleen: UnremarkableAdrenals: UnremarkableKidneys and ureters: There is moderate right- sided hydrocele ureterand hydronephrosis secondary to a 0.9 x 0.4 cm stone at th e right UVJ.A 10 x 7 cm cyst of the left kidney seen along its lateral aspect.There is a 0.3 cm parenchymal calcification in the medial aspect ofthe mid to upper pole of the left kidney as well as 4 nonobstructivestones of the mid to inferior pole of left kidney largest measuring0.6 cm.Stomach and bowel: Sigmoid diverticulosis without any definiteinflammatory changes.Appendix: No appendicitisPELVIS:Bladder: Obscured by beam hardening artifact arising from left hipprosthesis.Reproductive: Not seen due to beam hardening artifactNo free fluid or free airIMPRESSION:Right-sided hydroureteronephrosis secondary to a 0.9 x 0.4 cm stone atthe right UVJ.Large cyst of left kidney as well as multiple nonobstructive stones ofleft kidney.Stone versus sludge within the gallbladder lumen.Beam hardening artifact arising from left hip prosthesis obscures finesoft tissue and bony details of the pelvic cavity.Electronically signed in PS360 by: Manjinder Rayo M.D. 111:16 EST Reported By: Blanca SIBLEY M.D. Signed By: Helen RAYO M.D. Name Value Range Interpretation Code Description Data Tal[facility] rce(s) Supporting Document(s) ID Date Data Source [id number] 06/21/2020 03:14:00 PM EST [facility] Exam Number: [id number] OF EXAMINATION : 06/21/2020 14:34 ESTHISTORY: Renal stoneTECHNIQUE: 1 views of the abdomen were obtained.There is a 0.3 cm stone in the upper mid and lower pole of leftkidney. Bowel gas pattern appears unremarkable.IMPRESSION:At least 3 small stones projecting over the left renal contour.Electronically signed in PS360 by: Manjinder Rayo M.D. 115:02 EST Reported By: Blanca RAYO M.D. Signed By: Helen RAYO M.D. Name Value Range Interpretation Code Description Data Tal[facility] rce(s) Supporting Document(s) ID Date Data Source [id number] 06/23/2020 01:40:00 PM EST [facility] Name Value Range Interpretation Code Description Data Talita rce(s) Supporting Document(s) [facility] ID Date Data Source [id number] 06/21/2020 06:13:00 PM EST [facility] Name Value Range Interpretation Code Description Data Talita rce(s) Supporting Document(s) URINE COLOR DK YELLOW [facility] UAPR Clear [facility] UGLU Negative NEGATIVE [facility] URINE BILIRUBIN Negative NEGATIVE N [facility] UKET 1+ NEGATIVE [facility] USG 1.031 1.010-1.025 H [facility] UBLO 3+ NEGATIVE [facility] UpH 5.0 5.0-8.0 [facility] UPRO 1+ Negative [facility] UUB 1.0 mg/dL 0.2-1.0 [facility] UNIT Negative Negative [facility] ULEU 1+ Negative [facility] ID Date Data Source [id number] 06/21/2020 06:13:[address] [facility] Name Value Range Interpretation Code Description Data Talita rce(s) Supporting Document(s) URINE RBC 101-200 RBCs/HPF NONE SEEN [facility] URINE WBC 3-5 WBCs/HPF NONE SEEN [facility] URINE BACTERIA Few NONE SEEN [facility] URINE EPI. Few NONE SEEN [facility] ID Date Data Source [id number] 04/26/2020 02:25:00 PM EST [facility] braden Is this an ANNUAL SCREENING TEST? Y Name Value Range Interpretation Code Description Data Talita rce(s) Supporting Document(s) PSA SCREEN 3.400 ng/mL 0.000-4.000 [facility] l PSA ASSAY SHOULD NOT BE USED A CANCER SCREENING TEST PIPE MANUFACTURE SUPERVISOR: Mister Bell [place] 500TEST METHODOLOGY: CHEMILUMINESCENT LOCI METHOD VALUES OBTAINED FROM DIFFERENT ASSAY METHODS OR KITS CANNOTBE USED INTERCHANGEABLY ID Date Data Source [id number] 04/26/2020 02:23:00 PM EST [facility] Name Value Range Interpretation Code Description Data Talita rce(s) Supporting Document(s) GLU 90 mg/dL 70-110 [facility] Patients taking Sulfasalazine may have f alsely depressedGlucose levels. Patients taking Sulfapyridine may havefalsely elevated Glucose levels. Patients should be drawnfor Glucose before the initial administration of eitherdrug. BUN 18 mg/dL 7-23 [facility] CRE 0.887 mg/dL 0.500-1.300 [facility] GFR > 60 mL/min [facility] CHLORIDE 109 mmol/L 99-110 [facility] NA 145 mmol/L 136-147 [facility] POTASSIUM 3.7 mmol/L 3.5-5.1 N [facility] TCO2 32 mmol/L 20-33 N [facility] ANION GAP 7.7 10.0-20.0 L [facility] CA 9.9 mg/dL 8.3-10.7 [facility] ID Date Data Source [id number] 01/19/2020 02:01:00 PM EDT [facility] Name Value Range Interpretation Code Description Data Talita rce(s) Supporting Document(s) USTSH 2.170 uIU/mL 0.270-4.200 N [facility] ID Date Data Source [id number] 12/20/2019 04:20:00 PM EDT [facility] Name Value Range Interpretation Code Description Data Talita rce(s) Supporting Document(s) Thyroid Stimulate Hormone TSH 0.358-3.74 Above high normal [facility] ID Date Data Source [id number] 11/06/2019 09:35:00 AM EDT [facility] Name Value Range Interpretation Code Description Data Talita rce(s) Supporting Document(s) SARS CORONAVIRUS 2 RNA [facility] This lab was ordered by [facility] and reported by [facility]. ID Date Data Source [id number] 11/04/2019 03:37:00 PM EDT [facility] Imaging Services Department Imaging Report [address] [place] [id number] %(RAD)RES..mtdd.print.filter("line") Name: ABRAHAM JORDAN : 1950 Age/Sex: 69M Ordering Provider: Daniel Landon MD Med Rec #: [id number] Reg Status: DEP REF Room #: Date of Service: 11/04/19 Report Number: [id number] cc:Daniel Landon MD Send Report To: [id number] XRP/XR Chest 2 View [Pa & Lat] Reason for exam: HTN Comparison is made to 10/20/2016 FINDINGS: The cardiac and mediastinal silhouettes appear normal and the lungs are clear. The bones and soft tissues are normal. The upper abdomen is unremarkable. IMPRESSION: No acute disease identifiable. Time portable performed: Fluoroscopy time in seconds: Number of Exposures: Contrast Agent in ml: Method of Administration: REPORT SIGNATURE ON FILE Reported By: Fili Shin MD <Electronically signed by Fili Shin MD> 11/07/19 1045 Dictation Date/Time: 11/04/19 1416 Transcribed Date/Time: 11/04/19 1537 Hasher Machine Operator: JAMES Name Value Range Interpretation Code Description Data Talita rce(s) Supporting Document(s) ID Date Data Source [id number] 10/19/2019 05:54:00 PM EDT [address] [id number] REPORTPATIENT NAME: ABRAHAM JORDAN MR#: [id number] PHYSICIAN: BETHANIE ARRIETAURGEON: Lloyd Gibson MD DATE: RM#: [id number] DATE: PATIENT : 50See AddendumOperative ReportOperative ReportDATE OF PROCEDURE: 10/17/2019PREOPERATIVE DIAGNOSIS: left forearm melanoma in situPOSTOPERATIVE DIAGNOSIS: sameANESTHESIA: 10ml 1% lidocaine with epi and 10 ml 1/2% marcaine with epiPROCEDURE: wide local excision left forearm melanoma in situ with advancementflapEBL : 10mlFINDINGS/SPECIMEN: left forearm melanoma in situ tagged long 3:00 short 9:00SURGEON: Ginette Gibson MDASSISTANT: noneCONDITION AFTER PROCEDURE: goodCopies to Family Provider: DAKOTA LANDON MDADDENDUM: Lloyd Gibson MD on 12/15/19 at 1114Brief description of the procedureThis 69-year-old gentleman who was found to have a melanoma in situ excised inthe office the melanoma needed 0.5 to 1 cm margins in all directions thereforethis need to be done in the operating room due to to its location on the distalforearm on the le ft near the elbow joint he originally was delayed with thismargin resection due to COVID 19 and all nonemergent cases being delayedhowever at this time he is taken to the operating room a consent was signed theluana was preoperatively marked with a marker in a pen he received preoperativeoperative antibiotics and he was taken to the operating room. This case wasdone using local only do 2 physician and patient preference the left it wasplaced in the supine position the left arm was prepped and draped in the usualsterile fashion placed on an armboard the scar was centered and approximately 1cm margins were measured in all directions including the deep margin and with amarker and 10 cc of 1% lidocaine with epinephrine was placed instilled into thescar and surrounding areas an incision was made along the marker with a 15blade scalpel hemostasis was achieved with electrocautery the 1 cm marginsincluded down to the deep tissue which was still into the subcutaneous fat tothe level of the fascia the p rior to passing out the specimen it was markedwith a stitch at the 3 and 9 o'clock position. The wound was copiouslyirrigated hemostasis was achieved with irrigation and electrocautery wasimpossible to close the wound with primary closure therefore flaps weredeveloped in all directions by undermining the tissue significantly in order toadvance the edges in the form of an advancement flap to close the wound tissuewas reapproximated with 3-0 Vicryl suture and the skin closed with aninterrupted Prolene stitch of 3-0 Prolene multiple stitches were used includingmattress stitches. Xeroflo and a dry sterile dressing was placed including anAce wrap needle instrument count were correct at the end the procedure [id number] Sedapap percent Marcaine with epinephrine was instilled into the wound andAce wrap was also placed and he was discharged to the recovery room in goodcondition with instructions he was awake for the entire procedureDATE SIGNED: 11/15/19 Electronically SignedTIME SIGNED: 1329 LLOYD GIBSON MD Name Value Range Interpretation Code Description Data Talita e(s) Supporting Document(s) ID Date Data Source [id number] 10/18/2019 01:55:00 PM EDT [facility] Name Value Range Interpretation Code Description Data Talita rce(s) Supporting Document(s) USTSH 7.890 uIU/mL 0.270-4.200 [facility] ID Date Data Source [id number] 10/18/2019 01:52:00 PM EDT [facility] Name Value Range Interpretation Code Description Data Talita rce(s) Supporting Document(s) CHOL 186 mg/dL 100-200 [facility] TRIG 131 mg/dL 30-190 N [facility] HDL 42 mg/dL 35-65 [facility] LDL DIRECT 120 mg/dL 0-100 [facility] VLDL 24 mg/dL 0-100 [facility] ID Date Data Source [id number] 10/18/2019 01:52:00 PM EDT [facility] Name Value Range Interpretation Code Description Data Talita rce(s) Supporting Document(s) GLU 92 mg/dL 70-110 [facility] Patients taking Sulfasalazine may have f alsely depressedGlucose levels. Patients taking Sulfapyridine may havefalsely elevated Glucose levels. Patients should be drawnfor Glucose before the initial administration of eitherdrug. BUN 14 mg/dL 7-23 [facility] CRE 0.835 mg/dL 0.500-1.300 [facility] GFR > 60 mL/min [facility] CHLORIDE 106 mmol/L 99-110 [facility] NA 143 mmol/L 136-147 [facility] POTASSIUM 4.0 mmol/L 3.5-5.1 [facility] TCO2 30 mmol/L 20-33 [facility] ANION GAP 11.0 10.0-20.0 [facility] CA 9.4 mg/dL 8.3-10.7 [facility] ID Date Data Source [id number] 10/18/2019 01:21:00 PM EDT [facility] Name Value Range Interpretation Code Description Data Talita rce(s) Supporting Document(s) WBC 8.27 x10E3/uL 4.0-10.5 [facility] RBC 4.70 x10E6/uL 4.70-6.00 [facility] Hemoglobin 14.1 g/dL 14.0-18.0 [facility] Hematocrit 43.5 % 42.0-52.0 [facility] MCV 92.6 fL 81.0-99.0 [facility] MCH 30.0 pg 27.0-31.0 [facility] MCHC 32.4 g/dL 32.7-35.6 [facility] RDW 13.1 % 11.5-14.0 [facility] Platelet count 315 x10E3/uL 150-450 [facility] ital MPV 9.5 fl 6.9-9.5 [facility] Neutrophils 51.8 % 34-64 [facility] Lymphocytes 33.0 % 25-45 [facility] Monocytes 10.0 % 1.7-10.6 [facility] Eosinophils 4.2 % 0.4-7.0 [facility] Basophils 0.8 % 0.1-2.0 [facility] Imm. Gran. 0.2 % 0.1-2.0 [facility] Abs. Neutro. 4.3 x10E3/uL 1.2-7.6 [facility] Lymph. 2.7 x10E3/uL 1.0-3.5 [facility] l Abs. [place]. 0.8 x10E3/uL 0.1-1.0 [facility] Abs. Eosin. 0.4 x10E3/uL 0.1-0.7 [facility] l Abs. Baso. 0.1 x10E3/uL 0.0-0.1 [facility] Abs. Imm. Gran. 0.0 x10E3/uL 0.0-0.1 [facility] pital ANRBC% 0 % 0 [facility] ID Date Data Source [id number] 10/18/2019 02:22:00 PM EDT [facility] What anti-coagulants is pt. on ?? [facility] Name Value Range Interpretation Code Description Data Talita rce(s) Supporting Document(s) INR 1.00 0.91-1.09 [facility] INR THERAPEUTIC RANGES Prophylaxis of ve nous thrombosis ] (high risk surgery) ]Treatment of venous thrombosis ]Treatment of pulmonary embolism ]Prevention of systemic embolism ] 2.0-3.0Tissue heart valves ]Acute myocardial infarction ]Valvular disease ]Atrial fibrillation ]Recurrent systemic embolism ] Mechanical prosthetic heart valves -------- 2.5-3.5 ID Date Data Source [id number] 10/25/2019 04:47:00 PM EDT [facility] Cc: Rafal (AB) SKIN FROM LEFT FOREARM, WIDE EXCISION: - CICATRIX WITH SUTURE GRANULOMAS - NO RESIDUAL MELANOMA IS PRESENT CODE/S:13031 . Received in formalin with proper patient identification labeled "wide excision of melanomain situ left forearm" is an ellipse of skin with attached subcutaneous tissue whichmeasures 6.2 x 2.1 x 1.6 cm. There is a long suture on the "3 o'clock" tip and a shortsuture on the "9 o'clock" tip of the specimen, as indicated by the specimen requisitionform. The specimen is inked as follows: red - 6 o'clock side; green - 12 o'clock side. The surface of the skin shows a centrally located cicatrix measuring 6 cm. The specimenis serially sectioned from tip to tip and entirely submitted. Slide identification: 1 - 3 o'clock tip margin2 - 9 o'clock tip margin3-10 - remainder of tissue sectioned across the short axis Name Value Range Interpretation Code Description Data Talita rce(s) Supporting Document(s) CLINICAL HISTORY [facility] Slides reviewed. Diagnosis supported b y microscopic examination. REPORT SIGNED: Courtney Petty DO 10/25/19 ID Date Data Source [id number] 10/14/2019 12:00:00 PM EDT [facility] Name Value Range Interpretation Code Description Data Talita rce(s) Supporting Document(s) SARS CORONAVIRUS 2 RNA [facility] This lab was ordered by [facility] and reported by [facility]. ID Date Data Source [id number] 10/16/2019 08:09:00 AM EDT [facility] Performed at: [facility] [id number] Director: Abida Dumont MD, Phone: [phone] Name Value Range Interpretation Code Description Data Talita rce(s) Supporting Document(s) COVID-19 Not Detected Not Detected N [facility] Testing was performed using the monisha(R) SARS-CoV-2 test.This test was developed and its performance characteristicsdetermined by [facility]. This test has not beenFDA cleared or approved. This test has been authorized byA under an Emergency Use Authorization (EUA). This testis only authorized for the duration of time the declarationthat circumstances exist justifying the authorization ofthe emergency use of in vitro diagnostic tests fordetection of SARS-CoV-2 virus and/or diagnosis of COVID-19infection under section 564(b)(1) of the Act, 21 U.S.C.360bbb-3(b)(1), unless the authorization is terminated orrevoked sooner. When diagnostic testing is negative, thepossibility of a false negative result should be consideredin the context of a patient's recent exposures and thepresence of clinical signs and symptoms consistent withCOVID- 19. An individual without symptoms of COVID-19 andwho is not shedding SARS-CoV-2 virus would expect to have anegative (not detected) result in this assay. Procedure Social History Code Duration Value Status Description Data Source(s ) Smoking 06/29/2020 12:00:00 AM EST Never Smoker completed Never S moker eCW1 ([facility]) Smoking 06/29/2020 12:00:00 AM EST Never Smoker completed Never S moker eCW1 ([facility]) Smoking 06/29/2020 12:00:00 AM EST Never Smoker completed Never S moker eCW1 ([facility]) Smoking 06/29/2020 12:00:00 AM EST Never Smoker completed Never S moker eCW1 ([facility]) Smoking 03/12/2020 12:00:00 AM EDT Never Smoker completed Never S moker eCW1 ([facility]) Smoking 03/12/2020 12:00:00 AM EDT Never Smoker completed Never S moker eCW1 ([facility]) Smoking 03/05/2020 12:00:00 AM EDT Never Smoker completed Never S moker eCW1 ([facility]) Smoking 11/07/2019 12:00:00 AM EDT Never Smoker completed Never S moker eCW1 ([facility]) Vital Signs ID Date Data Source UNK Name Value Range Interpretation Code Description Data Source(s) Diastolic blood pressure 74 mm[Hg] 74 mm[Hg] eCW1 ([facility]) Systolic blood pressure 128 mm[Hg] 128 mm[Hg] e CW1 ([facility]) Respiratory rate 18 /min 18 /min eCW1 ([facility]) Heart rate 63 /min 63 /min eCW1 ([facility]) Body mass index (BMI) [Ratio] 32.09 kg/m2 32.09 kg/m2 eCW1 ([facility]) Body height 74 [in_i] 74 [in_i] eCW1 ([facility]) Body weight 250 [lb_av] 250 [lb_av] eCW1 ([facility]) Body height 72 [in_i] 72 [in_i] eCW1 ([facility]) Body mass index (BMI) [Ratio] 35.26 kg/m2 35.26 kg/m2 eCW1 ([facility]) Body weight 260 [lb_av] 260 [lb_av] eCW1 ([facility]) Body temperature 97.7 [degF] 97.7 [degF] eCW1 ( [facility]) Oxygen saturation in Arterial blood by Pulse oximetry 91 % 91 % eCW1 ([facility]) Respiratory rate 22 /min 22 /min eCW1 ([facility] Body height 72 [in_i] 72 [in_i] eCW1 ([facility]) Body mass index (BMI) [Ratio] 35.26 kg/m2 35.26 kg/m2 eCW1 ([facility]) Body weight 260 [lb_av] 260 [lb_av] eCW1 ([facility]) Heart rate 71 /min 71 /min eCW1 ([facility]) Respiratory rate 17 /min 17 /min MEDENT ( [facility] ) Body mass index (BMI) [Ratio] 34.8 kg/m2 34.8 k g/m2 MEDENT ([facility] ) Body weight 260.00 [lb_av] 260.00 [lb_av] MEDEN T ([facility] ) Body height 72.5 [in_i] 72.5 [in_i] MEDENT ([facility] ) 6'0.50" Body temperature 97.0 [degF] 97.0 [degF] MED[facility] ([facility] ) Heart rate 72 /min 72 /min [facility] ([facility] ) Diastolic blood pressure 88 mm[Hg] 88 mm[Hg] [facility] ([facility] ) Systolic blood pressure 134 mm[Hg] 134 mm[Hg] M EDENT ([facility] ) Body height 72 [in_us] 72 [in_us] eCW1 ([facility]) Body mass index (BMI) [Ratio] 35.26 kg/m2 35.26 kg/m2 eCW1 ([facility]) Body weight Measured 260 [lb_av] 260 [lb_av] eC W1 ([facility]) Body mass index (BMI) [Ratio] 34.1 kg/m2 34.1 k g/m2 MEDENT ([facility] ) Body weight 255.00 [lb_av] 255.00 [lb_av] MEDEN T ([facility] ) Body height 72.5 [in_i] 72.5 [in_i] MEDENT ([facility] ) 6'0.50" Body temperature 98.4 [degF] 98.4 [degF] MED[facility] ([facility] )
--- OUTSIDE RECORDS SUMMARY | 2020-08-03 06:21 | CCD | Clinical Summary ---
Author Author RecoveredPersonRecord_000001 Francisco Javier MD Organization Unknown Address [address] [facility] [address] [place] [address] Phone Unavailable Care Team Providers Care Language Teacher Name Role Phone Rafal NEAL, Dr. Jyothi Sanchez MD Unavailable [phone] Beatriz Alvarado LPN Unavailable Unavailable Social History Code Name Start Date Stop Date Never Smoker 10/13/2011 Sex: Male Problems SNOMED Problem Status Date Discovered Last Modifie d Date [id number] Encounter for screening for malignant neoplasm o f prostate Active 04/25/2020 04/25/2020 Other specified hypothyroidism Active 02/21/2011 04/25/2020 Essential (primary) hypertension Active 09/07/19 11 04/25/2020 Mixed hyperlipidemia Active 08/02/2007 020 Obstructive sleep apnea < CPAP INTOLERANT Active 02/03/2006 04/25/2020 Encounter for general adult medical exam ination without abnormal findings Active 04/25/2020 04/25/2020 Unilateral primary osteoarthritis, left hip Resolved 11/02/2019 01/18/2020 Encounter for other preprocedural examination Resolved 11/02/2019 11/02/2019 Nervousness Active 03/25/2006 10/18/2019 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 Active 0 09/05/2019 10/18/2019 Benign prostatic hyperplasia with lower urinary tract symptoms Active 10/15/2017 10/18/2019 Low back pain Active 12/26/2008 07/20/2019 Body mass index (BMI) 33.0-33.9, adult Active 04/21/2019 Calculus of kidney Active 09/06/2015 9 Polyneuropathy, unspecified Active 04/20/2018 10/20/2018 BPH Active 10/15/2017 10/15/2017 45668130 Hearing loss Active 04/16/2017 04/16/2017 15812313 Unspecified hearing loss, left ear Active 201604/16/2017 32858979 Renal stone Active 09/06/2015 12/14/2017 [id number] Acquired hypothyroidism Active 02/21/201102/2018 Eczema Active 02/03/2006 [id number] Obstructive sleep apnea,CPAP intolerant Active 0 02/03/2006 04/16/2017 10257675 Obstructive sleep apnea (adult) (pediatric) Active 02/03/2006 04/16/2017 530189025 Nervousness Active 03/25/2006 12/14/2017 18667389 Hyperlipidemia Active 08/02/2007 10/15/2017 Acquired hypothyroidism, unspecified [...] thin film to affected ar ea bid 9318958 05/18/2003 Current finasteride 5 mg oral tablet TAKE ONE TABLET BY MOUTH EVERY DAY 31 0346 10/15/2017 Current escitalopram oxalate 10 mg oral tablet TAKE ONE TABLET BY MOUTH EVERY DAY 898527 12/14/2017 Current tamsulosin 0.4 mg oral capsule TAKE ONE CAPSULE BY MOUTH EVERY DA Y 568522 10/15/2017 Current levothyroxine 200 mcg oral tablet TAKE ONE TABLET BY MOUTH EVERY DA Y 225514 10/18/2019 Current hydroCHLOROthiazide 12.5 mg oral tablet TAKE ONE TABLET BY MOUTH EVERY DAY 985524 12/07/2019 Current losartan 100 mg oral tablet TAKE ONE TABLET BY MOUTH EVERY DAY 959783 12/07/2019 Current metoprolol succinate 50 mg oral Tablet, Extended Release 24 hr TAKE ONE TABLET BY MOUTH EVERY DAY 021267 02/16/2003 Current levothyroxine 25 mcg oral tablet TAKE ONE TABLET BY MOUTH EVERY DAY 658422 12/21/2019 Current HYDROcodone-acetaminophen 7.5-325 mg oral tablet take 1 tabl et by oral route every 4 hours as needed for pain MDD 4 966885 03/02/2019 Current Allergies Date Identified Type Cause Reaction Severity Status Code System Co de 12/07/2003 Allergy to substance Sulfas Low Active 12/14/2017 Allergy to substance Cymbalta diarrhea Low Active RXNORM 876134 Procedures Code System Code Description Date Ordered Status CPT 74432 Collection of venous blood by venipunctur e 04/26/2020 completed CPT 3725F Screening for depression performed (DEM) 04/26/2020 completed CPT 22798 Behav assmt w/score & docd/stand instrume nt 04/26/2020 completed Immunizations Date Vaccine Status CVX 08/16/2019 Influenza, high dose seasonal Completed 13 5 10/23/2016 Td adult Completed 09 04/16/2017 Prevnar 13 (Pneumococcal PCV 13) Completed 133 04/20/2018 PNEUMOVAX 23 (Pneumococcal PPV23) Completed 33 Vital Signs Date PulseOx Height Weight BMI Temp Respiration Heart Rate Blood P ressure IO2C 04/26/2020 96% 187.96cm 113.4kg 32.1kg/m2 35.67Cel 83/min 154/7 8mm[Hg] Assessment * Z00.00 Encounter for general adult medical examination without abnormal findings * G47.33 Obstructive sleep apnea < CPAP INTOLERANT * E78.2 Mixed hyperlipidemia * I10 Essential (primary) hypertension * E03.8 Other specified hypothyroidism * Z12.5 Encounter for screening for malignant neoplasm of prostate Plan of Treatment * Encounter for general adult medical examination without abnormal findings* Orders: 04637 - Office/outpatient visit; established patient, level 4 G0439 - Annual wellness visit, includes a PPPS, subsequent visit G0444 - Annual Depression Screening 15 minutes * Obstructive sleep apnea < CPAP INTOLERANT * Mixed hyperlipidemia* Orders: 88862 - Collection of venous blood by venipuncture * Essential (primary) hypertension* Orders: 45049 [place] [address], CO2 54324, Cl [address], Cr 21287, Gl 57798, K [address], [place] [address], BUN 92434) * Other specified hypothyroidism * Encounter for screening for malignant neoplasm of prostate* Orders: 90050 - Prostate specific antigen, total Referrals No referral reasons listed. Functional Status No Functional Status Listed Mental Status No Mental Status Listed Goals No Goals listed. Health Concerns No Health Concerns listed. Health Status Evaluations/Outcomes No Evaluations/Outcomes listed. Interventions No Interventions listed. Lab Results No lab results listed. Encounter Diagnosis * Encounter for general adult medical examination without abnormal findings here for 3 month follow up and AWVdoes he need mcfp narcotics , still using one per dayhe is UTD prevnar, pneumovax and flu shotdeclines colon screen, psa would like?labs are UTD 10/2019med list reviewed,, it is UTDDr Buscemi will retir e so I will fill prostate medsfollow up 3 months This report was requested by: Daniel Lyles | Reference #: [id number] Francisco Javier comes to the office today for an Annual Wellness Visit. Depression Sc reen: The patient has not felt, down, depressed or hopeless.There are no symptom s of feeling sad or empty, little interest in activites, weight changes, poor co ncentration, tearfulness, worthlesness. PHQ-9 was completed and filed. Anxiety Screen: The patient has not felt nervous, anxious or on edge.There are no sympto ms of feeling unable to control or stop worrying. ERNA-2 was completed and filed. Functional Ability (see Medicare health risk assessment): Timed get up and go test was not unsteady or longer than 30 seconds. He/she does not need help with the phone, transportation, shopping, preparing meals, housework, laundry, medica tions or managing money. The patient's home is free of falling hazards. The maira ent has not noticed any hearing difficulties. Cognitive Assessment: mental stat us: alert and oriented x 3; appropriate affect and demeanor; recent and remote m hai are intact; good insight and judgement; After review of the HRA there was no observation, self-reported concerns, or responses to queries of concern, ther efore there is no indication to perform a MMS exam, follow-up will be done harvinder PEREZV. Preventative Care:Colonoscopy Discussed benefits and risks of screening for colon CA. We recommend they are screened at age 50 or age 40 if t here is a strong family history. After this discussion the patient has decided t o decline a colonoscopy.Eye exam Last eye exam was done in 03/2017 by Wendy ipid Screen Results of the screen were LDL: 120 (mg/dL) (10/18/2019), HDL: 42 (mg/dL) (10/18/2019), Total Cholesterol: 186 (mg/dL) (10/18/2019), Triglyceride s: 131 (mg/dL) (10/18/2019)Diabetic Screen Glucose, Plasma: 92 (mg/dL) (2019)HIV Screen [facility] Public Health law requires that HIV testing be offered to pe rsons between the ages of 13 and 64 receiving primary care services. We have dis cussed the details of HIV testing. The patient feels they are not a high risk gr oup and declines HIV testing.Hep C Screen Hepatitis C screening was offered on per [facility] law, patient declines testing at this time.Bone Density: Osmani wing declines bone density screening at this time.PSA results were PSA, serum: 1.4 90 (ng/mL) (10/20/2018)AAA screen: AAA screen is not applicable to this patient. EKG EK08/15/2014 (04/14/2016) Immunizations:. Not up to date on Zostavax, S hingrix Up to date on, Pneumonia, Tdap, and Prevnar Tobacco: He has never smoked . Physical Activity level was assessed, encouraged regular physical activity ap propriate for age and health status. Fall risk assessment was completed today P atient did not fall in the last 12 months Urinary Incontinence Screen: Patient d oes not report any bladder control issues or urinary incontinence. IVD Screen: No history or current diagnosis of Ischemic Vascular Disease Peripheral Arterial Disease (PAD) Screen: Screening for PAD was done due to risk factors such as ag e over 65, smoking, or coronary artery disease and was found to be negative. Co ronary Artery Disease (CAD): This patient does not have CAD. Heart Failure: No history or current diagnosis of Heart Failure Pain screen was performed using th e visual analog scale, see Medicare health risk assessment. End of Life Plannin g:DNR: declines DNR at this timeHCP: HCP was completed and is on file in patient chart.MOLST: declines MOLST at this time Other medical providers include Dr familia goss,, dr beltran,, Dr florian-neck pain( [place]), Blood pressure screen: pre- hypertensive (120-139/80-89), recommended lifestyle modifications, weight reduct ion, DASH diet, and sodium restriction. Recommend rescreen in one year. [employer] Risk Assessment completed and reviewed, no concerns were noted Written screening schedule checklist for the next 5 to10 years has been completed, given to the beneficiary and has been filed. BMI is 33.0-33.9 BMI above parameters, follow up plan documented. Nutrition classes recommended Chronic Care Management : This patient does not qualify for Chronic Care Management services. Risk Leve l: 3 (04/26/2020) rat exterminator opioids? This patient is on mcfp (> 3 months) opioid medications. This patient is not at risk for overdose.. The benefit of chronic opioid therapy (pain control) outweighs the risks such as addiction, overdose, etc.. This patient is not dependent on opioid pain medication and could be tappered off opioid medication.. Opioid dose does not exceed 90 morph ine milligram equivalent.. Drug test Urine drug testing has not been done.. non steroidal anti inflammatory drugs,. Patient is not willing to taper off chronic opioid medication. CAGE AID: 0 (04/26/2020) * Obstructive sleep apnea < CPAP INTOLERANT * Mixed hyperlipidemia In regard to the mixed hyperlipidemia, he cannot recall when the diagnosis of hy percholesterolemia was made. Current treatment includes none. He denies experi encing any hypercholesterolemia related symptoms. Most recent lab tests include LDL: 120 (mg/dL) (10/18/2019), HDL: 42 (mg/dL) (10/18/2019), Total Cholestero l: 186 (mg/dL) (10/18/2019), Triglycerides: 131 (mg/dL) (10/18/2019). * Essential (primary) hypertension Dx with essential (primary) hypertension; patient has moderate. This was first diagnosed more than 5 years ago. Current nonpharmacologic treatment includes lo w sodium diet. His current cardiac medication regimen includes a beta-britney ( Toprol-XL ) and an angiotensin receptor britney ( Cozaar ). He is tolerating t he medication well without side effects. Compliance with treatment has been goo d; he takes his medication as directed and follows up as directed. * Other specified hypothyroidism Additionally, he presents with history of other specified hypothyroidism. he is currently taking Levothyroid, 225 mcg daily. TSH was last checked 4 months ago . The result was reported as high. He denies any related symptoms. He reports no symptoms suggestive of adverse medication effect. Pertinent medical history is negative for pancreatic problems, adrenal problems, ovarian problems, testic ular problems and diabetes. * Encounter for screening for malignant neoplasm of prostate"
[2020-08-03] MEDS ORDERED: ACETAMINOPHEN 1000MG 100ML IV BTL (OFIRMEV) (J0131 PER 10MG) As Ordered ONE (06:51)
[2020-08-03] MEDS ORDERED: MIDAZOLAM INJ 2MG/2ML VIAL (J2250 PER 1MG) As Ordered ONE (06:51)
[2020-08-03] MEDS ORDERED: propofoL 200 MG/20 ML VIAL As Ordered ONE (06:52)
[2020-08-03] MEDS ORDERED: ePHEDrine SULFATE 25 MG/5 ML(5MG/ML) SYRINGE As Ordered ONE (06:52)
[2020-08-03] MEDS ORDERED: PHENYLephrine 500MCG 5ML (100MCG/ML) SYRINGE As Ordered ONE (06:52)
[2020-08-03] MEDS ORDERED: LIDOCAINE 2% 100MG/5ML SDV (FOR ANES.) As Ordered ONE (06:52)
[2020-08-03] MEDS ORDERED: dexameTHASONE 4 MG/ML 1ML VIAL (J1100 PER 1MG) As Ordered ONE (06:52)
[2020-08-03] MEDS ORDERED: ONDANSETRON 4MG/2ML VIAL As Ordered ONE (06:52)
[2020-08-03] MEDS ORDERED: CONRAY-60 60% 50ML VIAL (Q9961) As Ordered ONE (07:13)
--- NOTE | 2020-08-03 08:21 | REP ---
INDICATION: CYSTO, LASER LITHO, right , STENT. COMPARISON: None. TECHNIQUE: Single fluoroscopically obtained spot radiograph of the abdomen. 5 seconds of fluoroscopy time is reported. FINDINGS: A single spot radiograph documents right ureteral cannulation, contrast injection. IMPRESSION: Procedural imaging. <Electronically signed by Milton Menard > 08/03/20 0899
[2020-08-03] MEDS ORDERED: ONDANSETRON 4MG/2ML VIAL IV PRN (09:00)
[2020-08-03] MEDS ORDERED: LR 1,000 ML IV SCH (09:00)
[2020-08-03] MEDS ORDERED: fentaNYL 100 MCG/2 ML INJECTION (J3010) IV PRN (09:00)
[2020-08-03 09:20] VITALS: BP 170/80
[2020-08-03] MEDS ORDERED: PERCOCET 5MG/325MG TAB PO PRN (10:00)
--- NOTE | 2020-08-03 11:13 | RO ---
OPERATIVE NOTE DATE OF OPERATION: 08/03/2020 PREOPERATIVE DIAGNOSIS: Right ureteral stone. POSTOPERATIVE DIAGNOSIS: Right ureteral stone. PROCEDURE: Cystoscopy, removal of stone from bladder, right ureteroscopy, right retrograde pyelogram with intraop interpreted images. SURGEON: Tavo Gtz MD PROFESSIONAL PROGRAMMER ANALYST: None. ANESTHESIA: General. OPERATIVE INDICATIONS: This is a 69-year-old male who was found to have an obstructing 9 mm right ureterovesical junction stone. He is brought to the operating room today for treatment. DESCRIPTION OF PROCEDURE: The patient was brought to the operating room and general anesthesia induced. Prophylactic antibiotics were infused. He was placed in the dorsal lithotomy position and prepped and draped in usual sterile fashion. A rigid cystoscope was inserted in the urethral meatus and advanced into the bladder. Of note, once inside the bladder there was an approximately 8-9 mm stone sitting at the base of the bladder. The stone was drained out of the bladder using the cystoscope. I then advanced the guidewire into right collecting system. I went up the right collecting system with a short semi-rigid ureteroscope and no stones were seen inside the ureter. This indicated that the stone seen sitting inside the bladder was the previously seen right ureteral stone and had passed into the bladder. A retrograde pyelogram was performed and was notable for mild right hydronephrosis with no extravasation. I then withdrew the ureteroscope and the bladder was emptied of all fluids. This marked the conclusion of the procedure. Guidewire was removed. The patient was taken out of the dorsal lithotomy position, awakened from anesthesia and transferred to recovery room in stable condition. ESTIMATED BLOOD LOSS: 5 mL. COMPLICATIONS: None. SPECIMEN: Kidney stone. PLAN: The patient will follow up in urology clinic in few weeks for postoperative visit. ELIZABETH
== END 2020-08-03 09:30 | disposition home or self-care (01) ==
LOC: M SDC 06:12
PROVIDERS: ATTEND Urology
DX: N20.1 Calculus of ureter (principal); I10 Essential (primary) hypertension; E03.9 Hypothyroidism, unspecified; F32.9 Major depressive disorder, single episode, unspecified; G47.30 Sleep apnea, unspecified; N40.0 Benign prostatic hyperplasia without lower urinary tract symptoms; Z79.899 Other long term (current) drug therapy; Z88.2 Allergy status to sulfonamides
CPT/HCPCS: 52351; 74420; 82365; 88300; C1769; J0131; J0690; J1100; J2250; J2370; J2405; Q9961

== ENCOUNTER 2021-05-17 09:25 | Day surgery (SDC) | payer MEDICARE, BC, OTHER ==
[~2021-05-17] VITALS: Ht 188 cm; Wt 114.3 kg
[~2021-05-17 09:25] MED LIST changes: +BUPIVACAINE HCL 0.5% 30 ML VIAL As Ordered ONE; -HM P99TA PO; +LIDOCAINE 1% MDV 20ML VIAL SQ PRN; +LIDOCAINE 2% MDV 20ML VIAL As Ordered ONE; +LOSA25TA13 PO; -LOSA25TA14 PO; +NEOSPORIN GU IRRIG 20 ML VIAL As Ordered ONE; +POTA99TA14 PO; +XARE10TA PO; +dexameTHASONE 4 MG/ML 1ML VIAL (J1100 PER 1MG) As Ordered ONE
[2021-05-17] MEDS ORDERED: GENTAMICIN SULF 80MG/2ML VIAL As Ordered ONE (11:14)
[2021-05-17] MEDS ORDERED: GLYCOPYRROLATE INJ 0.2 MG/ML 2 ML VIAL As Ordered ONE (11:50)
[2021-05-17] MEDS ORDERED: fentaNYL 100 MCG/2 ML INJECTION As Ordered ONE (11:54)
[2021-05-17] MEDS ORDERED: KETAMINE HCL 200 MG/20 ML VIAL As Ordered ONE (11:54)
[2021-05-17] MEDS ORDERED: LIDOCAINE 2% 100MG/5ML SDV (FOR ANES.) As Ordered ONE (11:54)
[2021-05-17] MEDS ORDERED: ONDANSETRON 4MG/2ML VIAL As Ordered ONE (11:54)
[2021-05-17] MEDS ORDERED: MIDAZOLAM INJ 2MG/2ML VIAL (J2250 PER 1MG) As Ordered ONE (11:54)
[2021-05-17] MEDS ORDERED: propofoL 200 MG/20 ML VIAL As Ordered ONE (11:54)
[2021-05-17] MEDS ORDERED: ePHEDrine SULFATE 25 MG/5 ML(5MG/ML) SYRINGE As Ordered ONE (12:10)
[2021-05-17 15:30] VITALS: BP 152/78
== END 2021-05-17 13:45 | disposition home or self-care (01) ==
LOC: M SDC 09:25
PROVIDERS: ATTEND Podiatrist
DX: M20.41 Other hammer toe(s) (acquired), right foot (principal); E03.9 Hypothyroidism, unspecified; I48.91 Unspecified atrial fibrillation; Z79.01 Long term (current) use of anticoagulants; I10 Essential (primary) hypertension; G47.30 Sleep apnea, unspecified; Z79.899 Other long term (current) drug therapy; F32.9 Major depressive disorder, single episode, unspecified; N40.0 Benign prostatic hyperplasia without lower urinary tract symptoms; Z88.2 Allergy status to sulfonamides
CPT/HCPCS: 28285; 73630; 76000; 88300; J0690; J1100; J1580; J2250; J2405; J3010

== ENCOUNTER 2022-08-22 08:59 | Day surgery (SDC) | payer MEDICARE, BC, OTHER ==
[~2022-08-22] VITALS: Ht 188 cm; Wt 119.2 kg
[~2022-08-22 08:59] MED LIST changes: -BUPIVACAINE HCL 0.5% 30 ML VIAL As Ordered ONE; +GABA-282 PO; -LIDOCAINE 1% MDV 20ML VIAL SQ PRN; -LIDOCAINE 2% MDV 20ML VIAL As Ordered ONE; -LR 1,000 ML IV ONE; -NEOSPORIN GU IRRIG 20 ML VIAL As Ordered ONE; +ceFAZolin SOD 1 GM in D5W MINI-BAG PLUS 50 ML IV ONE; -dexameTHASONE 4 MG/ML 1ML VIAL (J1100 PER 1MG) As Ordered ONE
[2022-08-22] MEDS ORDERED: LIDOCAINE 2% MDV 20ML VIAL As Ordered ONE (09:22)
[2022-08-22] MEDS ORDERED: GENTAMICIN SULF 80MG/2ML VIAL As Ordered ONE (09:22)
[2022-08-22] MEDS ORDERED: BUPIVACAINE HCL 0.5% 30ML VIAL As Ordered ONE (09:23)
[2022-08-22] MEDS ORDERED: LR 1,000 ML IV SCH (09:50)
[2022-08-22] MEDS ORDERED: propofoL 200 MG/20 ML VIAL As Ordered ONE (11:21)
[2022-08-22] MEDS ORDERED: KETOROLAC 60MG 2ML VIAL As Ordered ONE (11:21)
[2022-08-22] MEDS ORDERED: ONDANSETRON 4MG 2ML VIAL As Ordered ONE (11:21)
[2022-08-22] MEDS ORDERED: MIDAZOLAM INJ 2MG/2ML VIAL As Ordered ONE (11:21)
[2022-08-22] MEDS ORDERED: LIDOCAINE 2% 100MG/5ML SDV (FOR ANES.) As Ordered ONE (11:21)
[2022-08-22] MEDS ORDERED: fentaNYL 100 MCG/2 ML INJECTION As Ordered ONE (11:21)
[2022-08-22] MEDS ORDERED: ACETAMINOPHEN 1000MG 100ML IV BAG As Ordered ONE (12:20)
[2022-08-22] MEDS ORDERED: KETAMINE HCL 200MG/20ML VIAL As Ordered ONE (12:27)
[2022-08-22 13:40] VITALS: BP 148/82
== END 2022-08-22 14:33 | disposition home or self-care (01) ==
LOC: M SDC 08:59
PROVIDERS: ATTEND Podiatrist
DX: M20.41 Other hammer toe(s) (acquired), right foot (principal); I10 Essential (primary) hypertension; I48.91 Unspecified atrial fibrillation; E03.9 Hypothyroidism, unspecified; K21.9 Gastro-esophageal reflux disease without esophagitis; N40.0 Benign prostatic hyperplasia without lower urinary tract symptoms; G47.33 Obstructive sleep apnea (adult) (pediatric); Z79.01 Long term (current) use of anticoagulants; Z79.899 Other long term (current) drug therapy; Z88.2 Allergy status to sulfonamides
CPT/HCPCS: 28285; 73630; 76000; 88300; J0131; J1100; J1580; J2250; J2405; J3010

== ENCOUNTER → 2022-09-18 | Outpatient (REF) | payer MEDICARE, BC, OTHER ==
[~2022-09-18] MED LIST changes: -ceFAZolin SOD 1 GM in D5W MINI-BAG PLUS 50 ML IV ONE; -ceFAZolin SOD 2 GM in IV 1 EA IV ONE
== END ==
LOC: M LAB REF 18:59
PROVIDERS: ATTEND Podiatrist
DX: L03.031 Cellulitis of right toe (principal); M79.671 Pain in right foot

== ENCOUNTER → 2023-01-06 | Outpatient (REF) | payer MEDICARE, OTHER ==
[2023-01-06 14:28] LABS: APPEARANCE, URINE HAZY (CLEAR); BACTERIA, URINE AUTO NEGATIVE (NEGATIVE); BILIRUBIN, URINE AUTO NEGATIVE (NEGATIVE); BLOOD, URINE BLOOD 2+ (NEGATIVE); COLOR, URINE YELLOW (YELLOW); GLUCOSE, URINE (UA) AUTO NEGATIVE (NEGATIVE); KETONE, URINE AUTO NEGATIVE (NEGATIVE); LEUKOCYTE ESTERASE, URINE AUTO NEGATIVE (NEGATIVE); MUCUS, URINE SMALL (NEGATIVE); NITRITE, URINE AUTO NEGATIVE (NEGATIVE); PROTEIN, URINE AUTO NEGATIVE (NEGATIVE); RBC, URINE AUTO 175 /HPF (0-3); SPECIFIC GRAVITY URINE AUTO 1.021 (1.002-1.035); SQUAMOUS EPITHELIAL CELL UR AU 0 /HPF (0-6); UROBILINOGEN, URINE AUTO 0.2 mg/dL (0.0-2.0); WBC, URINE AUTO 9 /HPF (0-3)
== END ==
LOC: M SMT 13:04
PROVIDERS: ATTEND Specialist
DX: R31.0 Gross hematuria (principal)

== ENCOUNTER → 2023-02-23 | Outpatient (REF) | payer MEDICARE, OTHER | LOC: M SMT 15:32 | PROVIDERS: ATTEND Specialist | DX: R31.0 Gross hematuria (principal) ==

== ENCOUNTER → 2023-11-10 | Outpatient (REF) | payer MEDICARE, OTHER ==
[2023-11-10 18:54] LABS: APPEARANCE, URINE TURBID (CLEAR); BACTERIA, URINE AUTO 1+ (NEGATIVE); BILIRUBIN, URINE AUTO NEGATIVE (NEGATIVE); BLOOD, URINE BLOOD 2+ (NEGATIVE); COLOR, URINE AMBER (YELLOW); GLUCOSE, URINE (UA) AUTO NEGATIVE (NEGATIVE); KETONE, URINE AUTO TRACE mg/dL (NEGATIVE); LEUKOCYTE ESTERASE, URINE AUTO 2+ (NEGATIVE); MUCUS, URINE LARGE (NEGATIVE); NITRITE, URINE AUTO NEGATIVE (NEGATIVE); PROTEIN, URINE AUTO 2+ mg/dL (NEGATIVE); RBC, URINE AUTO TNTC /HPF (0-3); SPECIFIC GRAVITY URINE AUTO 1.026 (1.002-1.035); SQUAMOUS EPITHELIAL CELL UR AU 0 /HPF (0-6); UROBILINOGEN, URINE AUTO 0.2 mg/dL (0.0-2.0); WBC, URINE AUTO 80 /HPF (0-3)
== END ==
LOC: M SMT 17:34
PROVIDERS: ATTEND Specialist
DX: R31.0 Gross hematuria (principal)

== ENCOUNTER 2024-04-29 08:33 | Day surgery (SDC) | payer MEDICARE, BC ==
[~2024-04-29] VITALS: Ht 188 cm; Wt 119.9 kg
[~2024-04-29 08:33] MED LIST changes: +GABA-1172 PO; -GABA-282 PO; +RA M500C PO; +VALS1TAB68 PO
[2024-04-29] MEDS ORDERED: ONDANSETRON 4MG 2ML VIAL As Ordered ONE (10:18)
[2024-04-29] MEDS ORDERED: LIDOCAINE 2% 100MG/5ML SDV (FOR ANES.) As Ordered ONE (10:18)
[2024-04-29] MEDS ORDERED: propofoL 200 MG/20 ML VIAL As Ordered ONE (10:18)
[2024-04-29] MEDS ORDERED: KETOROLAC 60MG 2ML VIAL As Ordered ONE (10:18)
[2024-04-29] MEDS ORDERED: GLYCOPYRROLATE INJ 0.2 MG/ML 2 ML VIAL As Ordered ONE (10:19)
[2024-04-29] MEDS ORDERED: MIDAZOLAM INJ 2MG/2ML VIAL As Ordered ONE (10:21)
[2024-04-29] MEDS ORDERED: ACETAMINOPHEN 1000MG/100ML IV BAG As Ordered ONE (10:24)
[2024-04-29] MEDS ORDERED: fentaNYL 100 MCG/2 ML INJECTION As Ordered ONE (10:28)
[2024-04-29] MEDS ORDERED: dexmedeTOMIDine (4MCG/ML)200MCG/50ML BTL (PRECEDEX) As Ordered ONE (10:50)
[2024-04-29] MEDS: ceFAZolin SOD 2 GM in IV 1 EA IV ONE (11:23)
[2024-04-29] MEDS: LIDOCAINE 2% MDV 20ML VIAL As Ordered ONE (11:30)
[2024-04-29] MEDS: GENTAMICIN SULF 80MG/2ML VIAL As Ordered ONE (11:53)
[2024-04-29 13:15] VITALS: BP 143/82; TEMP 97.8; O2SAT 97
== END 2024-04-29 13:33 | disposition home or self-care (01) ==
LOC: M SDC 08:33
PROVIDERS: ATTEND Podiatrist
DX: M20.42 Other hammer toe(s) (acquired), left foot (principal); I48.91 Unspecified atrial fibrillation; I10 Essential (primary) hypertension; E03.9 Hypothyroidism, unspecified; K21.9 Gastro-esophageal reflux disease without esophagitis; Z88.2 Allergy status to sulfonamides; G47.33 Obstructive sleep apnea (adult) (pediatric); Z79.01 Long term (current) use of anticoagulants; N40.0 Benign prostatic hyperplasia without lower urinary tract symptoms; Z79.899 Other long term (current) drug therapy
CPT/HCPCS: 28285; 28899; 73630; 88300; J0131; J0665; J0690; J1100; J1580; J1596; J1885; J2250; J2405; J3010

== ENCOUNTER → 2024-05-24 | Outpatient (REF) | payer MEDICARE, OTHER | LOC: M LAB REF 09:54 | PROVIDERS: ATTEND Podiatrist | DX: L03.032 Cellulitis of left toe (principal) ==

== ENCOUNTER → 2024-08-17 | Outpatient (CLI) | payer MEDICARE, BC ==
[2024-08-17 18:41] LABS: BASO # 0.1 10^3/uL (0.0-0.2); BASO % 0.8 % (0.0-1.0); EOS # 0.2 10^3/uL (0.0-0.5); EOS % 3.3 % (0.0-3.0); HEMATOCRIT 45.5 % (42.0-52.0); HEMOGLOBIN 14.8 g/dl (13.5-17.5); LYMPH # 2.6 10^3/uL (1.5-5.0); LYMPH % 35.3 % (24.0-44.0); MEAN CORPUSCULAR HEMOGLOBIN 31.7 pg (27.0-33.0); MEAN CORPUSCULAR HGB CONC 32.5 g/dl (32.0-36.5); MEAN CORPUSCULAR VOLUME 97.4 fl (80.0-96.0); MONO # 0.6 10^3/uL (0.0-0.8); MONO % 7.9 % (2.0-8.0); NEUTROPHILS # 3.9 10^3/uL (1.5-8.5); NEUTROPHILS % 52.4 % (36.0-66.0); PLATELET COUNT, AUTOMATED 241 10^3/uL (150-450); RED BLOOD COUNT 4.67 10^6/uL (4.30-6.10); WHITE BLOOD COUNT 7.4 10^3/uL (4.0-10.0)
[2024-08-17 18:45] LABS: ERYTHROCYTE SEDIMENTATION RATE 27 mm/hr (0-20)
[2024-08-17 18:57] LABS: HEMOGLOBIN A1c 5.4 % (4.0-6.0)
[2024-08-17 19:06] LABS: ALBUMIN 3.7 G/DL (3.2-5.2); ALKALINE PHOSPHATASE 73 U/L (40-129); ALT/SGPT 16 U/L (7.0-40); AST/SGOT 15 U/L (<34); BILIRUBIN,TOTAL 0.4 MG/DL (0.3-1.2); BLOOD UREA NITROGEN 21 MG/DL (9-23); CALCIUM LEVEL 9.9 MG/DL (8.3-10.6); CARBON DIOXIDE LEVEL 32 MMOL/L (20-31); CHLORIDE LEVEL 105 MMOL/L (98-107); CREATININE FOR GFR 0.93 MG/DL (0.70-1.30); GLOMERULAR FILTRATION RATE > 60.0 (>42); GLUCOSE, FASTING 109 MG/DL (74-106); SODIUM LEVEL 144 MMOL/L (136-145); TOTAL PROTEIN 7.2 G/DL (5.7-8.2)
[2024-08-17 19:08] LABS: RHEUMATOID FACTOR QUANT < 3.5 IU/ML (<14); THYROID STIMULATING HORMONE 1.538 uIU/ML (0.55-4.78)
[2024-08-17 19:09] LABS: FOLATE > 24.0 NG/ML (>5.4); VITAMIN B12 LEVEL 832 PG/ML (211-911)
[2024-08-17 19:11] LABS: FREE THYROXINE INDEX 3.6 % (1.4-3.8); T UPTAKE 45.6 % (22.5-37.0)
[2024-08-19 22:11] LABS: T P ELECTROPHORESIS SO 7.1 g/dL (6.1-8.1)
[2024-08-22 12:43] LABS: ANA SCREEN, IFA NEGATIVE (NEGATIVE)
[2024-08-23 04:18] LABS: VITAMIN E(ALPHA TOCOPHEROL) 21.4 mg/L (5.7-19.9); VITAMIN E(GAMMA TOCOPHEROL) < 1.0 mg/L (<=4.3)
[2024-08-23 07:22] LABS: ALBUMIN SPEP 4.1 g/dL (3.8-4.8); ALPHA-1-GLOBULINS SO 0.2 g/dL (0.2-0.3); ALPHA-2-GLOBULINS SO 0.6 g/dL (0.5-0.9); BETA 2 GLOBULIN 0.3 g/dL (0.2-0.5); BETA-GLOBULIN SO 0.5 g/dL (0.4-0.6); GAMMA GLOBULINS SO 1.3 g/dL (0.8-1.7); SPEP ABN PROTEIN BAND 1 0.7 g/dL (NONE DETECTED)
[2024-08-25 16:36] LABS: VITAMIN B6,PYRIDOXAL PHOSPHATE 42.2 ng/mL (2.1-21.7)
[2024-08-27 12:32] LABS: VITAMIN B1 LEVEL WHOLE BLOOD 218 nmol/L (78-185)
== END ==
LOC: M PLALAB 15:56
PROVIDERS: ATTEND Psychiatry & Neurology Neurology
DX: E11.9 Type 2 diabetes mellitus without complications (principal); E53.8 Deficiency of other specified B group vitamins; E07.9 Disorder of thyroid, unspecified

== ENCOUNTER → 2024-09-21 | Outpatient (REF) | payer MEDICARE, BC ==
[2024-09-21 15:38] LABS: APPEARANCE, URINE CLOUDY (CLEAR); BACTERIA, URINE AUTO NEGATIVE (NEGATIVE); BILIRUBIN, URINE AUTO NEGATIVE (NEGATIVE); BLOOD, URINE BLOOD 1+ (NEGATIVE); COLOR, URINE AMBER (YELLOW); GLUCOSE, URINE (UA) AUTO NEGATIVE (NEGATIVE); KETONE, URINE AUTO TRACE mg/dL (NEGATIVE); LEUKOCYTE ESTERASE, URINE AUTO 3+ (NEGATIVE); MUCUS, URINE LARGE (NEGATIVE); NITRITE, URINE AUTO NEGATIVE (NEGATIVE); PROTEIN, URINE AUTO 2+ mg/dL (NEGATIVE); RBC, URINE AUTO 91 /HPF (0-3); SPECIFIC GRAVITY URINE AUTO 1.028 (1.002-1.035); SQUAMOUS EPITHELIAL CELL UR AU 0 /HPF (0-6); WBC, URINE AUTO TNTC /HPF (0-3)
== END ==
LOC: M SMT 14:48
PROVIDERS: ATTEND Specialist
DX: R31.0 Gross hematuria (principal)